=== PATIENT | male | born 1955 | race Caucasian/White ===

== ENCOUNTER 2017-11-14 14:18 | Emergency (ER) | payer OTHER, MEDICARE ==
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
[2017-11-14] MEDS ORDERED: OXYCODONE-ACETAMINOPHEN 5-325 MG TABLET PO ONE (16:03)
--- NOTE | 2017-11-14 16:43 | RADIOLOGY REPORT (SQ) ---
EXAM DESCRIPTION: SHOULDER LEFT 2 OR MORE VIEWS COMPLETED DATE/TIME: 11/14/2017 4:17 pm REASON FOR STUDY: fall, pain COMPARISON: None. NUMBER OF VIEWS: Three views. TECHNIQUE: Internal rotation, external rotation, and Y view images acquired of the left shoulder. LIMITATIONS: None. FINDINGS: MINERALIZATION: Normal. BONES: No acute fracture or dislocation. No worrisome bone lesions. JOINTS: No dislocation. VISUALIZED LUNGS AND RIBS: No pneumothorax. No rib fracture. SOFT TISSUES: No radiopaque foreign body. OTHER: No other significant finding. IMPRESSION: NEGATIVE STUDY OF THE LEFT SHOULDER. NO RADIOGRAPHIC EVIDENCE OF ACUTE INJURY. TECHNICAL DOCUMENTATION: JOB ID: [id number] [employer]- All Rights Reserved Reading location - IP/workstation name: [email or web address]
[2017-11-14 18:39] VITALS: BP 181/83
== END 2017-11-14 18:42 | disposition home or self-care (01) ==
LOC: ER 14:18
DX: S49.92XA Unspecified injury of left shoulder and upper arm, initial encounter (principal); M25.512 Pain in left shoulder; E78.00 Pure hypercholesterolemia, unspecified; K21.9 Gastro-esophageal reflux disease without esophagitis; F32.9 Major depressive disorder, single episode, unspecified; W19.XXXA Unspecified fall, initial encounter; Y93.9 Activity, unspecified; Y92.9 Unspecified place or not applicable; Y99.9 Unspecified external cause status; Z65.5 Exposure to disaster, war and other hostilities
CPT/HCPCS: 99283

== ENCOUNTER 2018-05-10 10:18 | Inpatient (IN) | payer OTHER, MEDICARE ==
--- NOTE | 2018-05-10 11:12 | ER Document Report ---
ED General - General Chief Complaint: High Blood Pressure Stated Complaint: BLOOD PRESSURE ISSUES Time Seen by Provider: 05/10/18 10:53 Notes: Patient is here complaining of feeling anxious, and being awakened about 4 AM this morning with a rapid and pounding heartbeat. He also experienced a penile erection which prevented him from urinating, until it went away and he was able to urinate. He feels like his heart is racing, but does not feel any chest pains. Has never had this before. Also feeling some shortness of breath this morning. Has not had any recent illness. No fevers or chills. Patient also complains of right testicular pain. He has had a problem with this symptom of right testicular pain off and on for a couple of years. Has never been seen by a doctor for this problem. This time the difference is that it is maintained pain in the right testicle for this long. He says it feels twisted and his says it looks like he is floating in a higher position than normal. Pain has been intermittent, as mentioned, but has become constant since yesterday. Patient has no history of any heart disease. No thyroid disease. Has a history of hypertension and high cholesterol for which she is [facility], but [facility]. He had a right hip replaced about 4 or 5 years ago. describes a procedure that sounds like he had a cardiac cath prior to that right hip replacement to make sure he can get through the surgery. Also has depression. TRAVEL OUTSIDE OF THE [place] IN LAST 30 DAYS: No - Related Data Allergies/Adverse Reactions: bacitracin [From Neosporin] Allergy (Verified 05/10/18 10:19) bacitracin zinc [From Neosporin] Allergy (Verified 05/10/18 10:19) gramicidin D [From Neosporin] Allergy (Verified 05/10/18 10:19) latex [Latex] Allergy (Verified 05/10/18 10:19) neomycin sulfate [From Neosporin] Allergy (Verified 05/10/18 10:19) Penicillins Allergy (Verified 05/10/18 10:19) polymyxin B [From Neosporin] Allergy (Verified 05/10/18 10:19) polymyxin B sulfate [From Neosporin] Allergy (Verified 05/10/18 10:19) Past Medical History - Social History Smoking Status: Unknown if Ever Smoked Family History: Reviewed & Not Pertinent, Hyperlipidemia - Past Medical History Cardiac Medical History: Reports: Hx Hypercholesterolemia Denies: Hx Coronary Artery Disease GI Medical History: Reports: Hx Gastroesophageal Reflux Disease Psychiatric Medical History: Reports: Hx Depression Past Surgical History: Reports: Hx Cardiac Surgery - ANGIOPLASTY, Hx Orthopedic Surgery - Right hip replacement - Immunizations Hx Diphtheria, Pertussis, Tetanus Vaccination: Yes Review of Systems - Review of Systems Notes: REVIEW OF SYSTEMS: CONSTITUTIONAL : Denies fever. EENT: Denies eye, ear, nose or mouth or throat pain or other symptoms. CARDIOVASCULAR: See HPI. RESPIRATORY: Denies cough, chest congestion, but did have some shortness of breath this morning. GASTROINTESTINAL: Denies abdominal pain or nausea, vomiting, or diarrhea. GENITOURINARY: See HPI. Has some burning with urination. No blood seen. Had an erection this morning that would not go away for a while. MUSCULOSKELETAL: Denies back or neck pain. Denies joint pain or swelling. SKIN: Denies rash or skin lesions. NEUROLOGICAL: Denies LOC or altered mental status. Denies headache. Denies sensory loss or motor deficits. ALL OTHER SYSTEMS REVIEWED AND NEGATIVE. Physical Exam - Vital signs Vitals: Temp Resp BP Pulse Ox 98.2 F 18 138/78 H 97 05/10/18 10:27 05/10/18 10:27 05/10/18 10:27 05/10/18 10:27 Interpretation: Tachycardic - Irregular rate Notes: PHYSICAL EXAMINATION: GENERAL: Well-appearing, in no acute distress. Tachycardia. HEAD: Atraumatic, normocephalic. EYES: Pupils equal round and reactive to light, extraocular movements intact. ENT: oropharynx clear without exudates. Moist mucous membranes. NECK: Normal range of motion, supple. LUNGS: Breath sounds clear and equal bilaterally. HEART: Irregularly irregular rate and rhythm without murmurs. ABDOMEN: Soft, nontender. No guarding or rebound. No masses. BACK: No tenderness throughout entire back. EXTREMITIES: Normal range of motion without pain. NEUROLOGICAL: Normal speech, normal gait. Normal sensory, motor, and reflex exams. Awake, alert, and oriented x3. Cranial nerves normal. PSYCH: Normal mood, normal affect. Genitourinary: Right testicle is diffusely tender, perhaps more so of the epididymis cannot really say whether the patient has swelling of the testicle.. SKIN: Warm, dry, no rashes. Course - Re-evaluation Re-evalutation: 05/10/18 13:40 Patient was given 10 mg of Cardizem and a Cardizem drip at 10 mg/h. Also given a liter of saline. Patient's heart rate fairly quickly decreased into the 90s, but remained in atrial fibrillation. Blood pressure was maintained. Land to contact hospitalist for admission. - Vital Signs Vital signs: Temp Pulse Resp BP Pulse Ox 98.1 F 74 17 131/83 H 94 05/10/18 17:16 05/10/18 19:00 05/10/18 17:16 05/10/18 17:16 05/10/18 17:16 - Laboratory Result Diagrams: 05/10/18 10:50 05/10/18 10:50 Laboratory results interpreted by me: 05/10/18 05/10/18 10:50 10:50 RBC 5.56 H Glucose 125 H - Diagnostic Test Radiology reviewed: Image reviewed, Reports reviewed - Ultrasound of the right testicle is normal. No explanation for the patient's pain. Critical Care Note - Critical Care Note Total time excluding time spent on procedures (mins): 40 Discharge - Discharge Clinical Impression: Atrial fibrillation with RVR, Right testicular pain Condition: Stable Disposition: ADMITTED INPATIENT Admitting Provider: Hospitalist Unit Admitted: Telemetry
[2018-05-10] MEDS ORDERED: ASPIRIN 81 MG TABLET, CHEWABLE PO ONE (11:15)
[2018-05-10] MEDS ORDERED: DILTIAZEM HCL INJ 25 MG/5 ML VIAL IV ONE (11:17)
[2018-05-10] MEDS ORDERED: DILTIAZEM HCL/D5W 125 MG/125 ML RTUINJ IV PRN (11:18)
[2018-05-10] MEDS ORDERED: NORMAL SALINE 1000 ML 1,000 ML IV ONE (11:21)
[2018-05-10 11:44] LABS: PROTHROMBIN TIME 12.6 SEC (11.4-15.4)
[2018-05-10 11:48] LABS: ABSOLUTE EOSINOPHILS # (AUTO) 0.2 10^3/uL (0.0-0.6); ABSOLUTE LYMPHOCYTES (AUTO) 3.6 10^3/uL (0.5-4.7); ABSOLUTE MONOCYTES (AUTO) 0.5 10^3/uL (0.1-1.4); ABSOLUTE NEUT (AUTO) 4.3 10^3/uL (1.7-8.2); BASOPHILS % (AUTO) 0.4 % (0-2); EOSINOPHILS % (AUTO) 2.2 % (0-6); HEMATOCRIT 48.4 % (37.9-51.0); LYMPHOCYTES % (AUTO) 41.5 % (13-45); MEAN CORPUSCULAR HEMOGLOBIN 30.6 pg (27.0-33.4); MEAN CORPUSCULAR HGB CONC 35.2 g/dL (32.0-36.0); MEAN CORPUSCULAR VOLUME 87 fl (80-97); PLATELET COUNT 314 10^3/uL (150-450); RED BLOOD COUNT 5.56 10^6/uL (4.35-5.55); SEGMENTED NEUTROPHILS % (AUTO) 49.9 % (42-78); TOTAL CELLS COUNTED % (AUTO) 100 %; WHITE BLOOD COUNT 8.6 10^3/uL (4.0-10.5)
[2018-05-10 11:50] LABS: ALANINE AMINOTRANSFERASE 39 U/L (21-72); ALBUMIN 4.8 g/dL (3.5-5.0); ALKALINE PHOSPHATASE 39 U/L (38-126); ANION GAP 8 (5-19); ASPARTATE AMINO TRANSFERASE 24 U/L (17-59); BILIRUBIN,DIRECT 0.2 mg/dL (0.0-0.4); BILIRUBIN,TOTAL 0.6 mg/dL (0.2-1.3); BLOOD UREA NITROGEN 17 mg/dL (7-20); CALCIUM 9.7 mg/dL (8.4-10.2); CARBON DIOXIDE 30 mmol/L (22-30); CHLORIDE 103 mmol/L (98-107); CREATINE KINASE 163 U/L (55-170); GLUCOSE 125 mg/dL (75-110); POTASSIUM 3.9 mmol/L (3.6-5.0); TOTAL PROTEIN 7.3 g/dL (6.3-8.2)
[2018-05-10 12:01] LABS: CREATINE KINASE MB 1.4 ng/mL (<4.55); TROPONIN I 0.029 ng/mL
--- NOTE | 2018-05-10 12:04 | RADIOLOGY REPORT (SQ) ---
EXAM DESCRIPTION: CHEST SINGLE VIEW COMPLETED DATE/TIME: 05/10/2018 11:50 am REASON FOR STUDY: Atrial fib RVR and short of breath COMPARISON: 02/15/2013 EXAM PARAMETERS: NUMBER OF VIEWS: One view. TECHNIQUE: Single frontal radiographic view of the chest acquired. RADIATION DOSE: NA LIMITATIONS: None. FINDINGS: LUNGS AND PLEURA: No opacities, masses or pneumothorax. No pleural effusion. MEDIASTINUM AND HILAR STRUCTURES: No masses. Contour normal. HEART AND VASCULAR STRUCTURES: Heart normal in size. Normal vasculature. BONES: No acute findings. HARDWARE: None in the chest. OTHER: No other significant finding. IMPRESSION: 1. No significant interval changes since the prior examination dated 02/15/2013. No ac kamala findings. TECHNICAL DOCUMENTATION: JOB ID: [id number] [employer]- All Rights Reserved Reading location - IP/workstation name: [email or web address]
--- NOTE | 2018-05-10 12:15 | EKG REPORT ---
SEVERITY:- ABNORMAL ECG - ATRIAL FIBRILLATION, V-RATE 81-167 RVR. : Confirmed by: Modesto Agarwal MD 10-May-2018 12:14:49
[2018-05-10 12:29] LABS: FREE T4 (FREE THYROXINE) 0.86 ng/dL (0.78-2.19)
[2018-05-10 12:45] LABS: THYROID STIMULATING HORMONE 2.87 uIU/mL (0.47-4.68)
[2018-05-10 12:46] LABS: APPEARANCE,URINE CLEAR; BILIRUBIN,URINE NEGATIVE (NEGATIVE); COLOR,URINE YELLOW; GLUCOSE, URINE NEGATIVE (NEGATIVE); KETONES,URINE NEGATIVE (NEGATIVE); LEUKOCYTE ESTERASE,URINE NEGATIVE (NEGATIVE); NITRITE,URINE NEGATIVE (NEGATIVE); PROTEIN,URINE NEGATIVE (NEGATIVE); URINE SPECIFIC GRAVITY 1.011; UROBILINOGEN,URINE NEGATIVE mg/dL (<2.0)
--- NOTE | 2018-05-10 13:07 | RADIOLOGY REPORT (SQ) ---
EXAM DESCRIPTION: U/S SCROTUM W/DOPPLER COMPLETED DATE/TIME: 05/10/2018 12:38 pm REASON FOR STUDY: Right testicular pain and swelling. COMPARISON: None. TECHNIQUE: Static and realtime okeefe scale imaging of the scrotum and testes. Selected color Doppler and spectral images recorded to document blood flow. LIMITATIONS: None. FINDINGS: RIGHT: TESTICLE: Normal size. Normal echotexture. Normal blood flow. No mass. EPIDIDYMIS: Normal. HYDROCELE OR VARICOCELE: No. HERNIA OR EXTRA-TESTICULAR MASS: No. OTHER: No other significant finding. LEFT: TESTICLE: Normal size. Normal echotexture. Normal blood flow. No mass. EPIDIDYMIS: Normal. HYDROCELE OR VARICOCELE: No. HERNIA OR EXTRA-TESTICULAR MASS: No. OTHER: No other significant finding. IMPRESSION: NORMAL SCROTAL ULTRASOUND. NO EVIDENCE OF TESTICULAR MASS OR TORSION. TECHNICAL DOCUMENTATION: JOB ID: [id number] [employer]- All Rights Reserved Reading location - IP/workstation name: [email or web address]
--- NOTE | 2018-05-10 14:09 | PDOC H&P ---
History of Present Illness Admission Date/PCP: [facility] CL[facility] History of Present Illness: SHANNON VAZQUEZ is a 63 year old male patient with past medical history of hypertension, hyperlipidemia and obesity presents with chief complaint of palpitation. Patient reports he was in his usual baseline state of up until 4 AM this morning when he started to have palpitation is not associated with chest pain. Patient denies any fever, chills or diaphoresis. No history of thyroid problems. Patient also complains of right testicular pain which has been going on for the last 2 years. His blood works are unremarkable and ultrasound of the scrotum is not revealing. His EKG revealed atrial fibrillation with RVR. Patient does not have history of atrial fibrillation in the past. Past Medical History Cardiac Medical History: Reports: Hyperlipidema, Hypertension Denies: Coronary Artery Disease GI Medical History: Reports: Gastroesophageal Reflux Disease Psychiatric Medical History: Reports: Depression Past Surgical History Past Surgical History: Reports: Orthopedic Surgery - Right hip replacement Social History Smoking Status: Never Smoker - Advance Directive Resuscitation Status: Full Code Family History Family History: Reviewed & Not Pertinent, Hyperlipidemia Parental Family History Reviewed: Yes Children Family History Reviewed: Yes Sibling(s) Family History Reviewed.: Yes Medication/Allergy Home Medications: Ciprofloxacin HCl [Cipro 500 mg Tablet] 500 mg PO BID 14 Days tablet 09/09/13 Ondansetron [Zofran Odt 4 mg Tablet] 1 - 2 tab PO Q4H PRN #15 tab.rapdis 09/09/13 Oxycodone HCl/Acetaminophen [Percocet 5-325 mg Tablet] 1 - 2 tab PO Q4H PRN #15 tablet 09/09/13 Unable To Recall 09/09/13 Allergies/Adverse Reactions: bacitracin [From Neosporin] Allergy (Verified 05/10/18 10:19) bacitracin zinc [From Neosporin] Allergy (Verified 05/10/18 10:19) gramicidin D [From Neosporin] Allergy (Verified 05/10/18 10:19) latex [Latex] Allergy (Verified 05/10/18 10:19) neomycin sulfate [From Neosporin] Allergy (Verified 05/10/18 10:19) Penicillins Allergy (Verified 05/10/18 10:19) polymyxin B [From Neosporin] Allergy (Verified 05/10/18 10:19) polymyxin B sulfate [From Neosporin] Allergy (Verified 05/10/18 10:19) Review of Systems Constitutional: ABSENT: chills, fever(s), headache(s), weight gain, weight loss Eyes: ABSENT: visual disturbances Ears: ABSENT: hearing changes Cardiovascular: PRESENT: palpitations Respiratory: ABSENT: cough, hemoptysis Gastrointestinal: ABSENT: abdominal pain, constipation, diarrhea, hematemesis, hematochezia, nausea, vomiting Genitourinary: ABSENT: dysuria, hematuria Musculoskeletal: ABSENT: joint swelling Integumentary: ABSENT: rash, wounds Neurological: ABSENT: abnormal gait, abnormal speech, confusion, dizziness, focal weakness, syncope Psychiatric: ABSENT: anxiety, depression, homidical ideation, suicidal ideation Endocrine: ABSENT: cold intolerance, heat intolerance, polydipsia, polyuria Hematologic/Lymphatic: ABSENT: easy bleeding, easy bruising Physical Exam Vital Signs: Temp Pulse Resp BP Pulse Ox 98.2 F 16 121/86 H 96 05/10/18 10:27 05/10/18 12:06 05/10/18 12:06 05/10/18 12:06 Intake & Output 05/09/18 05/10/18 05/11/18 06:59 06:59 06:59 Weight 98.5 kg General appearance: PRESENT: no acute distress, well-developed, well-nourished Head exam: PRESENT: atraumatic, normocephalic Eye exam: PRESENT: conjunctiva pink, EOMI, PERRLA. ABSENT: scleral icterus Ear exam: PRESENT: normal external ear exam Mouth exam: PRESENT: moist, tongue midline Neck exam: ABSENT: carotid bruit, JVD, lymphadenopathy, thyromegaly Respiratory exam: PRESENT: clear to auscultation claudette. ABSENT: rales, rhonchi, wheezes Cardiovascular exam: PRESENT: irregular rhythm Pulses: PRESENT: normal dorsalis pedis pul Vascular exam: PRESENT: normal capillary refill GI/Abdominal exam: PRESENT: normal bowel sounds, soft. ABSENT: distended, guarding, mass, organolmegaly, rebound, tenderness Rectal exam: PRESENT: deferred Extremities exam: PRESENT: full ROM. ABSENT: calf tenderness, clubbing, pedal edema Neurological exam: PRESENT: alert, awake, oriented to person, oriented to place, oriented to time, oriented to situation, CN II-XII grossly intact. ABSENT: motor sensory deficit Psychiatric exam: PRESENT: appropriate affect, normal mood. ABSENT: homicidal ideation, suicidal ideation Skin exam: PRESENT: dry, intact, warm. ABSENT: cyanosis, rash Results Laboratory Results: 05/10/18 10:50 05/10/18 10:50 05/10/18 05/10/18 05/10/18 10:50 10:50 10:50 WBC 8.6 RBC 5.56 H Hgb 17.0 Hct 48.4 MCV 87 MCH 30.6 MCHC 35.2 RDW 13.0 Plt Count 314 Seg Neutrophils % 49.9 Lymphocytes % 41.5 Monocytes % 6.0 Eosinophils % 2.2 Basophils % 0.4 Absolute Neutrophils 4.3 Absolute Lymphocytes 3.6 Absolute Monocytes 0.5 Absolute Eosinophils 0.2 Absolute Basophils 0.0 Sodium 141.0 Potassium 3.9 Chloride 103 Carbon Dioxide 30 Anion Gap 8 BUN 17 Creatinine 1.08 Est GFR ( Amer) > 60 Est GFR (Non-Af Amer) > 60 Glucose 125 H Calcium 9.7 Total Bilirubin 0.6 AST 24 ALT 39 Alkaline Phosphatase 39 Total Protein 7.3 Albumin 4.8 TSH 2.87 Free T4 0.86 Urine Color Urine Appearance Urine pH Ur Specific [place] Urine Protein Urine Glucose (UA) Urine Ketones Urine Blood Urine Nitrite Ur Leukocyte Esterase Urine WBC (Auto) 05/10/18 12:05 WBC RBC Hgb Hct MCV MCH MCHC RDW Plt Count Seg Neutrophils % Lymphocytes % Monocytes % Eosinophils % Basophils % Absolute Neutrophils Absolute Lymphocytes Absolute Monocytes Absolute Eosinophils Absolute Basophils Sodium Potassium Chloride Carbon Dioxide Anion Gap BUN Creatinine Est GFR ( Amer) Est GFR (Non-Af Amer) Glucose Calcium Total Bilirubin AST ALT Alkaline Phosphatase Total Protein Albumin TSH Free T4 Urine Color YELLOW Urine Appearance CLEAR Urine pH 7.0 Ur Specific [place] 1.011 Urine Protein NEGATIVE Urine Glucose (UA) NEGATIVE Urine Ketones NEGATIVE Urine Blood NEGATIVE Urine Nitrite NEGATIVE Ur Leukocyte Esterase NEGATIVE Urine WBC (Auto) 0 05/10/18 05/10/18 10:50 10:50 Creatine Kinase 163 CK-MB (CK-2) 1.40 Troponin I 0.029 Impressions: Chest X-Ray 05/10/18 11:15 IMPRESSION: 1. No significant interval changes since the prior examination dated 02/15/2013. No acute findings. Scrotum Ultrasound 05/10/18 11:28 IMPRESSION: NORMAL SCROTAL ULTRASOUND. NO EVIDENCE OF TESTICULAR MASS OR TORSION. Assessment & Plan - Diagnosis (1) Atrial fibrillation with RVR Is this a current diagnosis for this admission?: Yes Plan: Patient has been on Cardizem drip. We will transition him to p.o. Cardizem and I will consulted Dr. Carreno for his input (2) Right testicular pain Is this a current diagnosis for this admission?: Yes Plan: Chronic. No ultrasound finding. (3) Hypertension Qualifiers: Hypertension type: essential hypertension Qualified Code(s): I10 - Essential (primary) hypertension Is this a current diagnosis for this admission?: Yes Plan: Continue home medication (4) Hyperlipidemia Qualifiers: Hyperlipidemia type: unspecified Qualified Code(s): E78.5 - Hyperlipidemia, unspecified Is this a current diagnosis for this admission?: Yes Plan: Continue Lipitor (5) Obesity (BMI 35.0-39.9 without comorbidity) Is this a current diagnosis for this admission?: Yes Plan: Lifestyle modification advised
[2018-05-10] MEDS ORDERED: ONDANSETRON HCL INJ/PF 4 MG/2 ML SDV IV PRN (14:10)
[2018-05-10] MEDS ORDERED: IBUPROFEN 800 MG TABLET PO ONE (14:12)
[2018-05-10] MEDS ORDERED: DILTIAZEM HCL 240 MG CAPSULE.CR PO ONE (14:14)
[2018-05-10] MEDS: ENOXAPARIN SODIUM INJ 40 MG/0.4 ML DISP.SYRIN SUBCUT SCH (14:51)
[2018-05-10] MEDS: LANSOPRAZOLE 15 MG TAB.RAP.DR PO SCH (16:31)
[2018-05-10] MEDS ORDERED: IBUPROFEN 800 MG TABLET ONE (23:28)
[2018-05-10] MEDS ORDERED: IBUPROFEN 400 MG TABLET PO PRN (23:28)
[2018-05-11 05:36] LABS: ANION GAP 10 (5-19); BLOOD UREA NITROGEN 21 mg/dL (7-20); CALCIUM 9.1 mg/dL (8.4-10.2); CARBON DIOXIDE 25 mmol/L (22-30); CHLORIDE 103 mmol/L (98-107); CHOLESTEROL 155.74 mg/dL (0-200); GLUCOSE 101 mg/dL (75-110); POTASSIUM 3.7 mmol/L (3.6-5.0); SODIUM 137.9 mmol/L (137-145); TRIGLYCERIDES 312 mg/dL (<150)
[2018-05-11 05:47] LABS: DIRECT LDL 94 mg/dL (<100)
[2018-05-11 05:53] LABS: VLDL CHOLESTEROL 62.4 mg/dL (10-31)
[2018-05-11] MEDS: LANSOPRAZOLE 15 MG TAB.RAP.DR PO SCH (06:10)
--- NOTE | 2018-05-11 07:46 | EKG REPORT ---
SEVERITY:- BORDERLINE ECG - SINUS RHYTHM VENTRICULAR PREMATURE COMPLEX PROBABLE LEFT ATRIAL ABNORMALITY BORDERLINE T WAVE ABNORMALITIES : Confirmed by: Modesto Agarwal MD 11-May-2018 07:45:59
[2018-05-11] MEDS: ENOXAPARIN SODIUM INJ 40 MG/0.4 ML DISP.SYRIN SUBCUT SCH (09:29)
[2018-05-11] MEDS ORDERED: DILTIAZEM HCL 240 MG CAPSULE.CR PO SCH (10:00)
[2018-05-11 11:43] VITALS: BP 151/57
--- NOTE | 2018-05-11 12:12 | PDOC CONSULTATION ---
Consultation-Blank Consultation: CARDIOLOGY CONSULTATION by Dr. Shy Carreno on 05/11/2018. Patient seen at 8 AM. 60 minutes spent on this patient with more than 50% time spent in direct patient care. REASON FOR CONSULTATION: Patient with history of proximal atrial fibrillation. HISTORY PRESENT ILLNESS: Patient is a 63-year-old male with known history of hypertension hyperlipidemia, states that yesterday he woke up from his sleep feeling that something was wrong and was very anxious. He has episodic spells of anxiety. He also had an urgency to pass urine. He subsequently went to bed and again felt the same. At this time he took his blood pressure and found that his heart rate was 162, with the elevated blood pressure. At this time he also noticed that he had rapid palpitations. He denies any shortness of breath or chest pain or discomfort. There is no cough or fever chills or Reiger's. Came to the emergency room where he seem to be in atrial fibrillation with rapid ventricular response. He was given IV Cardizem and subsequently oral Cardizem and converted to sinus rhythm last evening. The patient has remained without any palpitations since then. Review of the monitor shows no ventricular arrhythmias or recurrence of any atrial arrhythmia. He remains in sinus rhythm. He has no TIA CVA symptoms. He denies any PND orthopnea or leg edema. He states that about 5 years ago he had a similar episode, and by the time he came to the emergency room he was found to be in a regular sinus rhythm and had a negative workup. Since then he has not had any palpitations except for the one yesterday that led to this admission. He also states he has right testicular pain which occurs episodically for the past 1-2 years. Workup in the emergency room was negative for any torsion or any acute pathology of the testicular apparatus. PAST MEDICAL HISTORY: He has a history of hypertension, and history of hyperlipidemia. There is no history of coronary artery disease, PA or anginal symptoms. There is no history of congestive heart failure. There is no history of prior palpitations as mentioned earlier except 5 years ago when he had a nonclinical episode of palpitation, the workup which was negative. He has no history of diabetes mellitus or thyroid disease. He has no history of chronic kidney disease. He has a history of GERD. He has a history of depression. There is no TIA CVA symptoms. There is no history of asthma or COPD, and no history of pulmonary embolism or sleep apnea. He does have episodic anxiety off and on. His depression he states is well controlled with medication. He also has a history of arthritis. PAST SURGICAL HISTORY: Right hip replacement. ALLERGIES: He is allergic to bacitracin ointment, gramicidin D, latex, Neosporin and neomycin, penicillin and Neosporin. FAMILY HISTORY: Is negative for coronary artery disease. There is a history of atrial fibrillation his brother. SOCIAL HISTORY: He quit smoking long time ago. There is no history of EtOH abuse. DISPOSITION: The patient is a full code. His is his surrogate healthcare decision maker REVIEW OF SYSTEMS: CONSTITUTIONAL: Denies fever chills or rigors. Generalized feeling of not feeling well, and also anxiety. No history of generalized fatigue or generalized weakness except when he had the palpitations. HEAD: No history of headaches or head injury. EYES: No history of amblyopia diplopia. No history of amaurosis fugax. EARS: No history of hearing loss. No history of tinnitus. No history of recurrent ear infections. NOSE: No history of hayfever. No history of nosebleeds prep. No history of nasal polyposis. MOUTH: No history of altered taste sensation. No ulcers in the mouth. No bleeding from the gums. THROAT: No history of odynophagia or dysphagia. No recurrent sore throats. Skin.: No history of pruritus. No history of yellowish discoloration of the skin. No eczema or psoriasis. NECK: No history of neck pain. No history of swelling in the neck. LUNGS: No history of asthma or COPD. No history of cough or sputum production. No history of wheezing. No history of sleep apnea. No history of pulmonary embolism. No history of pleuritic chest pain. No history of hemoptysis. No symptoms of upper or lower respiratory tract infections. CARDIAC/heart: History of hypertension present. No history of coronary artery disease or PA. This seems to be first clinical episode of documented atrial fibrillation. Is converted to sinus rhythm. Palpitations as mentioned earlier. No history of chest pain or discomfort. No history of PND orthopnea or shortness of breath or diaphoresis. No history of congestive heart failure. No history of rheumatic fever or congenital heart disease. No history of leg edema. No history of syncope. GI: History of GERD present. No history of fatty food intolerance. No history of peptic ulcer disease. No history of GI bleed. No history of ALTERED BOWEL MOVEMENTS. Musculoskeletal: Denies collagen vascular disease. He has history of arthritis and chronic low back pain, for which he takes ibuprofen off and on. RENAL and genitourinary: Denies chronic kidney disease. No symptoms of enlarged prostate. No history of hematuria pyuria or dysuria. Right testicular pain off and on since the past 2 years. METABOLIC: History of mild obesity present. No history of gout. History of hyperlipidemia present. ENDOCRINE: No history of diabetes mellitus or thyroid disease. No history of polydipsia polyuria no history of heat or cold intolerance. 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 No history of headaches migraines or seizures. PSYCHIATRIC: History of depression present well controlled on medication. Episodic spells of anxiety. No history of suicidal ideation.. No history of homicidal ideation. VASCULAR: No history of calf or buttock claudication. No history of DVT. HEMATOLOGICAL: No history of anemia. No history of bleeding diathesis. No history of clotting disorders. PHYSICAL EXAMINATION: The patient is mildly obese. At present in no acute distress he remains in sinus bradycardia by the monitor. He is well-groomed. Selected Entries 05/11/18 11:10 Temperature 97.6 F Temperature Oral Source Pulse Rate 56 L Respiratory 15 Rate Blood Pressure 137/66 H Blood Pressure 89 Mean BP Location Right Arm BP Position Supine O2 Sat by Pulse 96 Oximetry Oxygen Delivery Room Air Method HEAD: Is atraumatic normocephalic. EYES: Pupils are equal round regular reactive to light accommodation. Extraocular movements are normal. No conjunctival pallor. There is no scleral icterus. EARS: Tympanic membranes are intact. External auditory canals are clear. NOSE: There is no inflammation of the nasal mucous membrane. There is no deviated nasal septum. MOUTH: Mucous membranes of the mouth are moist. Tongue is moist. There is no ulcers. There is no bleeding from the gums. THROAT: There is no redness of the oropharynx. There is no exudates. SKIN: There is no petechia or ecchymosis. There is no skin lesions or skin rashes. NECK: Is supple. There is no JVD. Carotids are equal without any bruits. There is no lymphadenopathy. There is no goiter. There is no accessory muscle respiration use. Trachea central. LUNGS: Lungs are clear to auscultation percussion, without any rhonchi rales or wheezing. On palpation there is no chest wall tenderness. HEART: S1-S2 is heard. S1 is of normal intensity. There is no S3 gallop. There is no S4 gallop. There is systolic murmur in the left sternal border and the apex? Mitral regurgitation #severity. There is no rub. ABDOMEN: Is soft. Nontender. There is no hepatosplenomegaly. Bowel sounds are well heard. There is no tender areas masses. There is no rebound guarding or rigidity. EXTREMITIES: Femorals are well felt. There is no femoral bruits. Leg pulses are well felt. There is no pedal edema. There is no DVT or cellulitis. There is no calf tenderness. There is no cyanosis or clubbing. Capillary refill is normal. LIQUOR BRIDGE OPERATOR: The patient is conscious awake alert oriented x3 with no focal deficits. PSYCHIATRIC: The patient judgment and insight are intact his affect is normal. Current Medications Generic Name Dose Route Start Last Admin Trade Name Freq PRN Reason Stop Dose Admin Diltiazem HCl 240 mg 05/11/18 10:00 05/11/18 09:29 Cardizem Cd 240 Mg Capsule.Cr PO 06/10/18 09:59 240 mg DAILY BHUMI Administration Enoxaparin Sodium 40 mg 05/10/18 15:00 05/11/18 09:29 Lovenox Inj 40 Mg/0.4 Ml Disp.Syrin SUBCUT 06/09/18 14:59 40 mg DAILY BHUMI Administration Diltiazem HCl 125 mg in 125 mls @ 0 mls/hr 05/10/18 11:18 05/10/18 15:50 Cardizem Rtu Inj 125 Mg-D5w 125 Ml Premix IV 06/09/18 11:17 Infused CONTINUOUS PRN Titration THIS MED IS NOT "PRN" Protocol Titrate Ibuprofen 400 mg 05/10/18 23:28 05/10/18 23:48 Motrin 400 Mg Tablet PO 06/09/18 23:27 400 mg Q6HP PRN Administration PAIN Ondansetron HCl 4 mg 05/10/18 14:10 Zofran Inj/Pf 4 Mg/2 Ml Sdv IV 06/09/18 14:09 Q8HP PRN FOR NAUSEA/VOMITING Pantoprazole Sodium 20 mg 05/11/18 17:[address] Tablet PO 06/10/18 16:59 BID@0600,1700 [facility] Discontinued Medications Generic Name Dose Route Start Last Admin Trade Name Veronica PRN Reason Stop Dose Admin Aspirin 324 mg 05/10/18 11:15 05/10/18 11:41 Aspirin 81 Mg Chewable Tablet PO 05/10/18 11:16 324 mg NOW ONE Administration Diltiazem HCl 10 mg 05/10/18 11:17 05/10/18 11:39 Cardizem Inj 25 Mg/5 Ml Vial IV 05/10/18 11:18 10 mg NOW ONE Administration Diltiazem HCl 240 mg 05/10/18 14:14 05/10/18 14:51 Cardizem Cd 240 Mg Capsule.Cr PO 05/10/18 14:15 240 mg NOW ONE Administration Sodium Chloride 1,000 mls @ 0 mls/hr 05/10/18 11:21 05/10/18 12:50 Nacl 0.9% 1000 Ml Iv Soln IV 05/10/18 11:22 Infused BOLUS ONE Infusion Wide Open Ibuprofen 800 mg 05/10/18 14:12 05/10/18 14:43 Motrin 800 Mg Tablet PO 05/10/18 14:13 800 mg NOW ONE Administration Ibuprofen Confirm 05/10/18 23:28 05/10/18 23:49 Motrin 800 Mg Tablet Administered 05/10/18 23:29 Not Given Dose 800 mg .ROUTE .STK-MED ONE Lansoprazole 15 mg 05/10/18 17:00 05/11/18 06:10 Prevacid 15 Mg Odt Tablet PO 06/09/18 16:59 Not Given BID@0600,1700 [facility] HOME MEDICATIONS: Albuterol Sulfate [Proair HFA Inhalation Aerosol 8.5 gm MDI] 2 puff IH QIDP PRN 05/10/18 Atorvastatin Calcium [Lipitor 40 mg Tablet] 20 mg PO QHS 05/10/18 Bupropion HCl [Bupropion HCl Sr] 150 mg PO BID 05/10/18 Calcium Citrate/Vitamin D3 [Calcium Citrate - Vit D Tablet] 1 tab PO TID 05/10/18 Cetirizine HCl [Zyrtec 10 mg Tablet] 10 mg PO DAILY 05/10/18 Ibuprofen [Motrin 400 mg Tablet] 400 mg PO TID 05/10/18 Magnesium Oxide [Magnesium] 500 mg PO DAILY 05/10/18 [place]-3 Fatty Acids/Fish Oil [Fish Oil 1,000 mg Capsule] 1 cap PO DAILY 05/10/18 Pyridoxine HCl [Vitamin B-6 Tablet 50 mg] 50 mg PO DAILY 05/10/18 Sodium Fluoride [Prevident 5000 Plus] 1 applic PO BID 05/10/18 Zinc Sulfate [Zinc-220 Capsule] 220 mg PO DAILY 05/10/18 Labs- Entire Visit 05/10/18 05/10/18 05/10/18 10:50 10:50 10:50 WBC 8.6 RBC 5.56 H Hgb 17.0 Hct 48.4 MCV 87 MCH 30.6 MCHC 35.2 RDW 13.0 Plt Count 314 Seg Neutrophils % 49.9 Lymphocytes % 41.5 Monocytes % 6.0 Eosinophils % 2.2 Basophils % 0.4 Absolute Neutrophils 4.3 Absolute Lymphocytes 3.6 Absolute Monocytes 0.5 Absolute Eosinophils 0.2 Absolute Basophils 0.0 PT INR Sodium 141.0 Potassium 3.9 Chloride 103 Carbon Dioxide 30 Anion Gap 8 BUN 17 Creatinine 1.08 Est GFR ( Amer) > 60 Est GFR (Non-Af Amer) > 60 Glucose 125 H Hemoglobin A1c % Calcium 9.7 Total Bilirubin 0.6 Direct Bilirubin 0.2 Neonat Total Bilirubin Not Reportable Neonat Direct Bilirubin Not Reportable Neonat Indirect Bili Not Reportable AST 24 ALT 39 Alkaline Phosphatase 39 Creatine Kinase 163 CK-MB (CK-2) 1.40 Troponin I 0.029 Total Protein 7.3 Albumin 4.8 Triglycerides Cholesterol LDL Cholesterol Direct VLDL Cholesterol HDL Cholesterol TSH Free T4 Urine Color Urine Appearance Urine pH Ur Specific Beals Urine Protein Urine Glucose (UA) Urine Ketones Urine Blood Urine Nitrite Urine Bilirubin Urine Urobilinogen Ur Leukocyte Esterase Urine WBC (Auto) U Hyaline Cast (Auto) Squamous Epi Cells Auto Urine Mucus (Auto) Urine Ascorbic Acid 05/10/18 05/10/18 05/10/18 10:50 10:50 12:05 WBC RBC Hgb Hct MCV MCH MCHC RDW Plt Count Seg Neutrophils % Lymphocytes % Monocytes % Eosinophils % Basophils % Absolute Neutrophils Absolute Lymphocytes Absolute Monocytes Absolute Eosinophils Absolute Basophils PT 12.6 INR 0.90 Sodium Potassium Chloride Carbon Dioxide Anion Gap BUN Creatinine Est GFR ( Amer) Est GFR (Non-Af Amer) Glucose Hemoglobin A1c % Calcium Total Bilirubin Direct Bilirubin Neonat Total Bilirubin Neonat Direct Bilirubin Neonat Indirect Bili AST ALT Alkaline Phosphatase Creatine Kinase CK-MB (CK-2) Troponin I Total Protein Albumin Triglycerides Cholesterol LDL Cholesterol Direct VLDL Cholesterol HDL Cholesterol TSH 2.87 Free T4 0.86 Urine Color YELLOW Urine Appearance CLEAR Urine pH 7.0 Ur Specific Beals 1.011 Urine Protein NEGATIVE Urine Glucose (UA) NEGATIVE Urine Ketones NEGATIVE Urine Blood NEGATIVE Urine Nitrite NEGATIVE Urine Bilirubin NEGATIVE Urine Urobilinogen NEGATIVE Ur Leukocyte Esterase NEGATIVE Urine WBC (Auto) 0 U Hyaline Cast (Auto) 1 Squamous Epi Cells Auto <1 Urine Mucus (Auto) RARE Urine Ascorbic Acid NEGATIVE 05/10/18 05/11/18 05/11/18 16:46 03:36 03:36 WBC RBC Hgb Hct MCV MCH MCHC RDW Plt Count Seg Neutrophils % Lymphocytes % Monocytes % Eosinophils % Basophils % Absolute Neutrophils Absolute Lymphocytes Absolute Monocytes Absolute Eosinophils Absolute Basophils PT INR Sodium 137.9 Potassium 3.7 Chloride 103 Carbon Dioxide 25 Anion Gap 10 BUN 21 H Creatinine 1.09 Est GFR ( Amer) > 60 Est GFR (Non-Af Amer) > 60 Glucose 101 Hemoglobin A1c % 5.4 Calcium 9.1 Total Bilirubin Direct Bilirubin Neonat Total Bilirubin Neonat Direct Bilirubin Neonat Indirect Bili AST ALT Alkaline Phosphatase Creatine Kinase CK-MB (CK-2) Troponin I 0.028 Total Protein Albumin Triglycerides 312 H Cholesterol 155.74 LDL Cholesterol Direct 94 VLDL Cholesterol 62.4 H HDL Cholesterol 34 L TSH Free T4 Urine Color Urine Appearance Urine pH Ur Specific Beals Urine Protein Urine Glucose (UA) Urine Ketones Urine Blood Urine Nitrite Urine Bilirubin Urine Urobilinogen Ur Leukocyte Esterase Urine WBC (Auto) U Hyaline Cast (Auto) Squamous Epi Cells Auto Urine Mucus (Auto) Urine Ascorbic Acid Chest X-Ray 05/10/18 11:15 IMPRESSION: 1. No significant interval changes since the prior examination dated 02/15/2013. No acute findings. Scrotum Ultrasound 05/10/18 11:28 IMPRESSION: NORMAL SCROTAL ULTRASOUND. NO EVIDENCE OF TESTICULAR MASS OR TORSION. IMPRESSION/RECOMMENDATION: 1. Paroxysmal atrial fibrillation: At present patient sinus rhythm. In view of the patient's heart rate being on the lower side would recommend decrease the patient's Cardizem CD from 2 40 mg once a day to Cardizem CD 180 mg once a day. Aspirin 325 mg p.o. daily.: [See discussion below]. 2.Hypertension: Blood pressure well controlled. 3.Hyperlipidemia: Continue Statin. 4. Right Testicular Pain: Antibiotics being started. 5.Systolic murmur? Mitral regurgitation. 6.Corrected JASBIR VASC-2 SCORE: The patient's corrected Jasbir vas 2 score is 1. Hence is at moderate risk for CVA. Discussed the option of anticoagulation with the newer anticoagulant agents orally, Coumadin and aspirin. The patient takes ibuprofen for arthritis off and on., And hence will be at a slightly higher risk for bleeding complications with the newer oral anticoagulant agents. This was discussed at length with the patient. Patient prefers to be on aspirin. Will get a 30-day event monitor as an outpatient, and also an echocardiogram as an outpatient to assess the murmur and also have an IV Lexiscan Cardiolite stress test to make sure that there is no underlying coronary artery disease. The patient's CAD risk factors are age, hypertension, and hyperlipidemia. Medications reviewed. Medication dosing discussed with the hospitalist. Management plans discussed with the hospitalist and with the patient. 60 minutes spent on this patient, with more than 50% of time spent in direct patient care. The patient desires to follow-up with me in the office. Contact numbers given. Cardiac status is stable. Hence would recommend discharging the patient home on current medications including aspirin 325 mg p.o. daily, and Cardizem CD at 180 mg p.o. daily.
--- NOTE | 2018-05-11 16:28 | PDOC DISCHARGE SUMMARY ---
General - Admit/Disc Date/PCP Admission Date/Primary Care Provider: 05/10/18 15:[facility] Discharge Date: 05/11/18 - Discharge Diagnosis (1) Atrial fibrillation with RVR Is this a current diagnosis for this admission?: Yes Summary: Patient was admitted with atrial fibrillation with RVR; no previous history of same. Laboratory evaluation including cardiac enzymes and thyroid panel were unremarkable. He is admitted to the medical floor and continuous cardiac telemetry and initi ally placed on a diltiazem drip. He converted to normal sinus rhythm and was subsequently transitioned to p.o. diltiazem. Cardiology was consulted; have approved patient for discharge to home today on Cardizem CD 180 mg daily and full dose aspirin therapy. Patient is to follow-up in Dr. Serna's office for 30-day event monitor, echocardiogram, and stress testing. He is also advised to follow-up with his primary care provider within 1 week. He is instructed to return to the emergency department as needed for concerning symptoms. (2) Hyperlipidemia Is this a current diagnosis for this admission?: Yes Summary: Continue home dose atorvastatin and omega-3 oils. (3) Hypertension Is this a current diagnosis for this admission?: Yes Summary: Home dose amlodipine has been discontinued. He has been placed on diltiazem CD 180 mg daily. Recommend low-sodium diet. Follow-up with primary care provider and with Dr. Carreno within 1 week; likely will require further antihypertensive medications. (4) Obesity (BMI 35.0-39.9 without comorbidity) Is this a current diagnosis for this admission?: Yes Summary: Dietary discretion/lifestyle modification advised. (5) Right testicular pain Is this a current diagnosis for this admission?: Yes Summary: Chronic per patient. Testicular ultrasound is benign. Urinalysis is negative. Patient is afebrile with normal WBC. No indications for antibiotics at this time. Recommend outpatient urology follow-up. - Additional Information Resuscitation Status: Full Code Discharge Diet: Cardiac Discharge Activity: Activity As Tolerated, Balance Activity w/Rest Prescriptions: Aspirin [Aspirin 325 mg Tablet] 325 mg PO DAILY PRN #90 tab PRN Reason: Diltiazem HCl [Diltiazem 24Hr Cd] 180 mg PO DAILY #30 cap.er.24h Home Medications: Albuterol Sulfate [Proair HFA Inhalation Aerosol 8.5 gm MDI] 2 puff IH QIDP PRN 05/10/18 Atorvastatin Calcium [Lipitor 40 mg Tablet] 20 mg PO QHS 05/10/18 Bupropion HCl [Bupropion HCl Sr] 150 mg PO BID 05/10/18 Calcium Citrate/Vitamin D3 [Calcium Citrate - Vit D Tablet] 1 tab PO TID 05/10/18 Cetirizine HCl [Zyrtec 10 mg Tablet] 10 mg PO DAILY 05/10/18 Ibuprofen [Motrin 400 mg Tablet] 400 mg PO TID 05/10/18 Magnesium Oxide [Magnesium] 500 mg PO DAILY 05/10/18 [place]-3 Fatty Acids/Fish Oil [Fish Oil 1,000 mg Capsule] 1 cap PO DAILY 05/10/18 Pyridoxine HCl [Vitamin B-6 Tablet 50 mg] 50 mg PO DAILY 05/10/18 Sodium Fluoride [Prevident 5000 Plus] 1 applic PO BID 05/10/18 Zinc Sulfate [Zinc-220 Capsule] 220 mg PO DAILY 05/10/18 Aspirin [Aspirin 325 mg Tablet] 325 mg PO DAILY PRN #90 tab 05/11/18 Diltiazem HCl [Diltiazem 24Hr Cd] 180 mg PO DAILY #30 cap.er.24h 05/11/18 Ibuprofen [Motrin 400 mg Tablet] 400 mg PO Q6HP PRN tablet 05/11/18 History of Present Illness History of Present Illness: Per H&P by Dr. Baer: SHANNON VAZQUEZ is a 63 year old male patient with past medical history of hypertension, hyperlipidemia and obesity presents with chief complaint of palpitation. Patient reports he was in his usual baseline state of up until 4 AM this morning when he started to have palpitation is not associated with chest pain. Patient denies any fever, chills or diaphoresis. No history of thyroid problems. Patient also complains of right testicular pain which has been going on for the last 2 years. His blood works are unremarkable and ultrasound of the scrotum is not revealing. His EKG revealed atrial fibrillation with RVR. Patient does not have history of atrial fibrillation in the past. Physical Exam Vital Signs: Temp Pulse Resp BP Pulse Ox 97.6 F 56 L 15 151/57 H 96 05/11/18 11:41 05/11/18 11:41 05/11/18 11:41 05/11/18 11:41 05/11/18 11:41 Intake & Output 05/10/18 05/11/18 05/12/18 06:59 06:59 06:59 Intake Total 1039 Output Total 600 Balance 439 Weight 102.6 kg General appearance: PRESENT: no acute distress, cooperative - [place] pleasant, obese, well-developed, well-nourished Head exam: PRESENT: atraumatic, normocephalic Eye exam: PRESENT: conjunctiva pink, EOMI, PERRLA. ABSENT: scleral icterus Mouth exam: PRESENT: moist, tongue midline Neck exam: ABSENT: carotid bruit, JVD, lymphadenopathy, thyromegaly Respiratory exam: PRESENT: clear to auscultation claudette, symmetrical, unlabored. ABSENT: rales, rhonchi, wheezes Cardiovascular exam: PRESENT: RRR, +S1, +S2, systolic murmur. ABSENT: diastolic murmur, rubs Pulses: PRESENT: normal dorsalis pedis pul Vascular exam: PRESENT: normal capillary refill GI/Abdominal exam: PRESENT: normal bowel sounds, soft. ABSENT: distended, guarding, mass, organolmegaly, rebound, tenderness Rectal exam: PRESENT: deferred Extremities exam: PRESENT: full ROM. ABSENT: calf tenderness, clubbing, pedal edema Neurological exam: PRESENT: alert, awake, oriented to person, oriented to place, oriented to time, oriented to situation, CN II-XII grossly intact. ABSENT: motor sensory deficit Psychiatric exam: PRESENT: appropriate affect, normal mood. ABSENT: homicidal ideation, suicidal ideation Skin exam: PRESENT: dry, intact, warm. ABSENT: cyanosis, rash Results Laboratory Results: 05/10/18 10:50 05/11/18 03:36 05/11/18 03:36 Sodium 137.9 Potassium 3.7 Chloride 103 Carbon Dioxide 25 Anion Gap 10 BUN 21 H Creatinine 1.09 Est GFR ( Amer) > 60 Est GFR (Non-Af Amer) > 60 Glucose 101 Calcium 9.1 Triglycerides 312 H Cholesterol 155.74 LDL Cholesterol Direct 94 VLDL Cholesterol 62.4 H HDL Cholesterol 34 L 05/10/18 05/10/18 05/10/18 10:50 10:50 16:46 Creatine Kinase 163 CK-MB (CK-2) 1.40 Troponin I 0.029 0.028 Impressions: Chest X-Ray 05/10/18 11:15 IMPRESSION: 1. No significant interval changes since the prior examination dated 02/15/2013. No acute findings. Scrotum Ultrasound 05/10/18 11:28 IMPRESSION: NORMAL SCROTAL ULTRASOUND. NO EVIDENCE OF TESTICULAR MASS OR TORSION. Qualifiers - * PATIENT BEING DISCHARGED WITH ANY OF THE FOLLOWING DIAGNOSIS: No Plan Discharge Plan: Discharged home with self-care. Follow-up with Dr. Serna's office within 1 week to schedule 30-day event monitor, echocardiogram, and stress testing. Follow-up with primary care provider within 1 week. Recommend outpatient urology follow-up to evaluate chronic testicular pain. Return to the emergency department as needed for concerning symptoms. Time Spent: Less than 30 Minutes
[2018-05-11] MEDS ORDERED: PANTOPRAZOLE SODIUM 20 MG TABLET.DR PO SCH (17:00)
== END 2018-05-11 13:07 | disposition home or self-care (01) | DRG 310 ==
LOC: ER 10:18 → EH 15:20 → 5 18:02
PROVIDERS: ADMIT Internal Medicine; ATTEND Internal Medicine
DX: I48.91 Unspecified atrial fibrillation (principal); I10 Essential (primary) hypertension; E78.00 Pure hypercholesterolemia, unspecified; N50.811 Right testicular pain; K21.9 Gastro-esophageal reflux disease without esophagitis; E66.9 Obesity, unspecified; F32.9 Major depressive disorder, single episode, unspecified; Z96.641 Presence of right artificial hip joint
CPT/HCPCS: 36415; 71045; 76870; 80048; 80053; 80061; 81001; 82550; 82553; 83036; 84439; 84443; 84484; 85025; 85610; 93005; 93010; 93976; 96365; 96366; 96372; 99291; J1650; J3490; J7030

== ENCOUNTER 2018-11-08 06:44 | Day surgery (SDC) | payer OTHER, MEDICARE ==
[2018-11-01 10:23] LABS: ABSOLUTE EOSINOPHILS # (AUTO) 0.2 10^3/uL (0.0-0.6); ABSOLUTE LYMPHOCYTES (AUTO) 3.7 10^3/uL (0.5-4.7); ABSOLUTE MONOCYTES (AUTO) 0.5 10^3/uL (0.1-1.4); ABSOLUTE NEUT (AUTO) 5.7 10^3/uL (1.7-8.2); BASOPHILS % (AUTO) 0.4 % (0-2); EOSINOPHILS % (AUTO) 1.9 % (0-6); HEMATOCRIT 44.6 % (37.9-51.0); HEMOGLOBIN 15.3 g/dL (13.5-17.0); LYMPHOCYTES % (AUTO) 36.8 % (13-45); MEAN CORPUSCULAR HEMOGLOBIN 29.7 pg (27.0-33.4); MEAN CORPUSCULAR HGB CONC 34.3 g/dL (32.0-36.0); MEAN CORPUSCULAR VOLUME 87 fl (80-97); MONOCYTES % (AUTO) 4.8 % (3-13); PLATELET COUNT 288 10^3/uL (150-450); RED BLOOD COUNT 5.14 10^6/uL (4.35-5.55); SEGMENTED NEUTROPHILS % (AUTO) 56.1 % (42-78); TOTAL CELLS COUNTED % (AUTO) 100 %; WHITE BLOOD COUNT 10.1 10^3/uL (4.0-10.5)
[2018-11-01 10:41] LABS: ANION GAP 9 (5-19); BLOOD UREA NITROGEN 21 mg/dL (7-20); CALCIUM 10.1 mg/dL (8.4-10.2); CARBON DIOXIDE 32 mmol/L (22-30); CHLORIDE 102 mmol/L (98-107); GLUCOSE 118 mg/dL (75-110); POTASSIUM 4.5 mmol/L (3.6-5.0)
[~2018-11-08 06:44] MED LIST: CEFAZOLIN SODIUM 2 GM in DEXTROSE 5%-WATER 100 ML IV PRN; LACTATED RINGERS 1000 ML IV PRN; LIDOCAINE 0.5% INJ-PF (5 MG/ML) 50 ML SDV SUBCUT PRN
[2018-11-08] MEDS ORDERED: LIDOCAINE 2% INJ (20 MG/ML) 20 ML MDV ONE ×2 (07:05→09:57)
[2018-11-08] MEDS ORDERED: EPINEPHRINE INJ/PF 1 MG/1 ML AMPULE ONE (07:06)
[2018-11-08] MEDS ORDERED: BUPIVACAINE HCL 0.5 % INJ/PF 30 ML SDV ONE (07:06)
[2018-11-08] MEDS ORDERED: MIDAZOLAM 2 MG/2 ML INJ ONE (07:07)
[2018-11-08] MEDS ORDERED: FENTANYL CITRATE INJ/PF 100 MCG/2 ML AMPUL ONE (07:07)
[2018-11-08] MEDS ORDERED: EPHEDRINE SULFATE INJ 50 MG/1 ML AMPULE ONE ×2 (07:07→12:58)
[2018-11-08] MEDS ORDERED: HYDROMORPHONE HCL INJ/PF 2 MG/ML AMPULE ONE (07:07)
[2018-11-08] MEDS ORDERED: PROMETHAZINE HCL INJ 25 MG/1 ML VIAL ONE (07:07)
[2018-11-08] MEDS ORDERED: PROPOFOL INJ 200 MG/20 ML VIAL IV ONE (07:08)
--- NOTE | 2018-11-08 08:17 | EKG REPORT ---
SEVERITY:- OTHERWISE NORMAL ECG - SINUS RHYTHM ATRIAL PREMATURE COMPLEX : Confirmed by: Shy Carreno MD 08-Nov-2018 08:16:23
[2018-11-08] MEDS ORDERED: MORPHINE SULFATE 10 MG/ML INJ IV PRN ×2 (08:19→11:11)
[2018-11-08] MEDS ORDERED: ONDANSETRON HCL INJ/PF 4 MG/2 ML SDV IV PRN ×2 (08:19→11:11)
[2018-11-08] MEDS ORDERED: OXYCODONE-ACETAMINOPHEN 5-325 MG TABLET PO PRN ×3 (08:19→11:11)
[2018-11-08] MEDS ORDERED: FENTANYL CITRATE INJ/PF 100 MCG/2 ML AMPUL IV PRN ×3 (08:19)
[2018-11-08] MEDS ORDERED: DIPHENHYDRAMINE HCL 50 MG/ML VIAL IV PRN (08:19)
[2018-11-08] MEDS ORDERED: MEPERIDINE HCL/PF INJ 25 MG/1 ML DISP.SYRIN IV PRN (08:19)
[2018-11-08] MEDS ORDERED: LIDOCAINE 2%/EPINEPHRINE INJ 20 ML VIAL ONE (09:57)
[2018-11-08] MEDS ORDERED: ROPIVACAINE HCL 0.5% INJ/PF (5 MG/1 ML) 30 ML SDV ONE (09:58)
--- NOTE | 2018-11-08 11:13 | Discharge Summary ---
Discharge Summary (SDC) - Discharge Final Diagnosis: Left shoulder rotator cuff tear Date of Surgery: 11/08/18 Discharge Date: 11/08/18 Condition: Good Forms: ASU Anesthesia D/C Instruction, Discharge POC-Surgical Service Treatment or Instructions: Schedule Follow Up w/ Dr. Roderick Feldman @ [facility] for Surgery to be seen in 10-14 days or as scheduled [place]: [place]: [place]: May remove dressing on postop day #3, keep incision covered and dry. Cryocuff to shoulder May begin pendulum exercises along w/ hand, wrist and elbow range of motion 4x per day or as tolerated. May remove sling for hygiene purposes otherwise continue it at all times. Stool softener of choice when on pain medication. USE OF [id number] IBUPROFEN: Ibuprofen (Advil, Nuprin, Medipren, Motrin IB) is a medication for fever and pain control. In addition, it has anti- inflammatory effects which may be beneficial, especially in the treatment of injuries. It's best to take ibuprofen with food. Persons with ulcer disease or allergy to aspirin should notify their physician of this before taking ibuprofen. Ibuprofen can be given every four to six hours, for a total of four doses daily. Age Pain or fever dose Antiinflammatory dose 6-8 yr 200 mg (1 tab) 200 mg (1 tab) 9-11 yr 200 mg (1 tab) 200-400 mg (1-2 tab) 11-14 yr 200-400 mg (1-2 tab) 400 mg (2 tab) 15-adult 400 mg (2 tab) 600 mg (3 tab) ORAL NARCOTIC MEDICATION: You have been given a prescription for pain control. This medication is a narcotic. It's best taken with food, as nausea can result if taken on an empty stomach. Don't operate machinery or drive within six hours of taking this medication. Do not combine this medicine with alcohol, or with any medication which can cause sedation (such as cold tablets or sleeping pills) unless you get permission from the physician. Narcotics tend to cause constipation. If possible, drink plenty of fluids and eat a diet high in fiber and fruits. Please be aware that prescription narcotics also have the potential for abuse. People become addicted to these medications because of the general sense of wellbeing that they induce. This feeling along with a significant reduction in tension, anxiety, and aggression provides a stimulating seductive quality to these drugs. Once your pain is under control, we encourage you to discard your unused narcotics. Prescriptions: Ketorolac Tromethamine [Toradol 10 mg Tablet] 10 mg PO Q8HP PRN #12 tablet PRN Reason: Oxycodone HCl/Acetaminophen [Percocet 5-325 mg Tablet] 1 tab PO Q6 PRN #25 tab PRN Reason: Referrals: RODERICK FELDMAN DO [ACTIVE STAFF] - Discharge Diet: As Tolerated Respiratory Treatments at Home: Deep Breathing/Coughing, Incentive Spirometer Discharge Activity: No Lifting Over 10 Pounds, No Lifting/Push/Pulling Report the Following to Your Physician Immediately: Fever over 101 Degrees, Unusual Bleeding, Redness, Swelling, Warmth, Increased Soreness
--- NOTE | 2018-11-08 11:35 | Operative Report ---
Operative Report DATE OF SURGERY: 11/08/18 PREOPERATIVE DIAGNOSIS: Left shoulder rotator cuff tear, degenerative SLAP tear, impingement syndrome POSTOPERATIVE DIAGNOSIS: Same plus irreparable rotator cuff OPERATION: Left shoulder arthroscopy with subacromial decompression, acromioplasty, rotator cuff tear/superior capsule reconstruction utilizing dermal allograft, open biceps tenodesis SURGEON: JOSEE FELDMAN ANESTHESIA: GA COMPLICATIONS: None ESTIMATED BLOOD LOSS: 10 cc PROCEDURE: Indication for above procedure: 63-year-old male with significant rotator cuff tear confirmed on MRI. Attempted conservative measures without resolution of patient's symptoms at that point decision was made to proceed with operative intervention. Risk and benefits were explained patient verbalized understanding consented for surgical procedure. Procedure In Detail: Patient was seen and evaluated in the preoperative holding area. The LEFT upper extremity was initialized and marked. Patient received 2g of Ancef IV for bacterial prophylaxis. Patient was taken back to the operative room where transferred to the operative table and placed under general anesthesia. Once they were adequately anesthetized patient placed in the beachchair position. Cervical spine was placed in neutral position all bony prominences were padded including nonoperative upper extremity and bilateral lower extremity. A surgical team debriefing was performed ensuring all instrumentation was available, the surgical procedure was discussed with possible concerns reviewed. The upper extremity was prepped with ChloraPrep draped in a sterile fashion. A timeout was done identifying correct patient, procedure and extremity everyone in attendance agree with this and verbalized no concerns. Posterior portal was established arthroscope introduced into the glenohumeral joint. Via translation anterior portal was established. Diagnostic arthroscopy demonstrated degenerative SLAP tear with significant synovitis along the glenohumeral joint no significant degenerative changes of the glenohumeral joint. Partial synovectomy was performed. Biceps tenotomy was performed to allow for later tenodesis. Subscapularis remained intact without abnormality. Inspection of the rotator cuff demonstrated full-thickness rotator cuff tear with retraction to the glenoid with partially intact infraspinatus. Arthroscope was introduced into the subacromial space via triangulation lateral portal was established, subacromial bursectomy was performed. Coracoacromial ligament was released but not excised an anterior acromial spur debrided via an acromioplasty. Inspection of the rotator cuff once again confirmed diagnosis with significant retraction and scarring to the glenoid and thus not repairable with primary means thus decision was made to proceed with superior capsular reconstruction. Greater tuberosity was debrided down to normal cancellus bone. Medial insertion of the dermal allograft along the glenoid was measured the anterior and posterior margins were also measured. Via triangulation portal was established to place swivel lock anchors x2 into the medial row at the tuberosity and this was also measured. The dermal allograft was then measured and on the back table graft was prepared. FiberWire horizontal mattress sutures were placed through the medial side and 2 holes placed to the lateral side. The graft was then inserted into the lateral portal and the fiber tape sutures loaded into the graft. The medial sutures were shuttled through the anterior and previous established Neviser's portal. Under direct visualization drill holes were placed anterior and posterior within the glenoid to place push lock anchors. The sutures were shuttled into the push lock anchors and the graft secured to the glenoid surface. Through the lateral portal 1 anterior and one posterior fiber tape was placed into a swivel lock anchor and secured to the lateral row obtaining double row fixation. Similarly one anterior one posterior fiber tape was placed into an additional swivel lock anchor completing lateral fixation. At completion there is excellent stability of the graft without evidence of superior migration. With the remaining fiber wire suture into the lateral portal the lateral edge of the graft and infraspinatus was secured with [id number] sutures. 3 additional [id number] sutures were placed between the graft and the infraspinatus. Finally one anterior and one posterior fiber wire from the medial anchors were secured in horizontal mattress fashion over the remanent rotator cuff. All sutures were then cut and portals removed. At the completion of the case portal incisions would be closed with interrupted 3-0 nylon suture. Longitudinal skin incision was made along the inferior third of the pectoralis major. Blunt dissection was performed identifying the inferior border of the pectoralis major. Any peripheral vasculature was carefully coagulated. I then identified the tenotomized long head of the biceps which was retrieved and brought out the wound. The tendon was then secured 2 centimeters distal to the musculotendinous junction with a #2 fiber loop and the remaining diseased portion of the biceps was excised. The Arthrex biceps tenodesis button was then secured to my biceps tendon. Under direct visualization I then cleared an area along the anterior aspect of the humerus and drilled unicortically. The button was then placed into the unicortical hole and the biceps tendon was shuttled to the anterior cortex of the humerus. I then checked stability of the button confirming maximal fixation. Utilizing the free needle one limb of the remaining FiberWire was secured to the biceps providing further fixation. The elbow was then placed through range of motion to ensure appropriate tension of the biceps with flexion and extension. The wound was then copiously irrigated with normal saline. Any peripheral vasculature was carefully coagulated with Bovie cautery. Skin was closed a running subcuticular 3-0 Monocryl suture reinforced with Dermabond and Steri-Strips. Patient was placed in a abduction sling. Sponge counts, instrument counts, needle counts were correct. Patient was then awoken from anesthesia. Transferred from the operating room table to the operating room stretcher. Th ere was no intraoperative complications patient tolerated procedure well stable to PACU. Postop plan: Patient follow-up the office in 2 weeks at which point we will proceed with suture removal. Patient will be set up for physical therapy 4 weeks postoperatively.
[2018-11-08] MEDS ORDERED: ROCURONIUM BROMIDE INJ 50 MG/5 ML VIAL IV ONE (12:15)
[2018-11-08] MEDS ORDERED: SUCCINYLCHOLINE CHLORIDE INJ 200 MG/10 ML VIAL ONE (12:15)
[2018-11-08] MEDS ORDERED: ONDANSETRON HCL INJ/PF 4 MG/2 ML SDV ONE ×2 (12:15→13:57)
[2018-11-08] MEDS ORDERED: KETOROLAC TROMETHAMINE 60 MG/2 ML SDV ONE (12:15)
[2018-11-08] MEDS ORDERED: PHENYLEPHRINE HCL INJ/PF 10 MG/1 ML SDV ONE (12:15)
[2018-11-08 18:44] VITALS: BP 152/79
== END 2018-11-08 18:05 | disposition home or self-care (01) ==
LOC: OROUT 06:44
PROVIDERS: ATTEND Orthopaedic Surgery
DX: M75.122 Complete rotator cuff tear or rupture of left shoulder, not specified as traumatic (principal); S43.432A Superior glenoid labrum lesion of left shoulder, initial encounter; X58.XXXA Exposure to other specified factors, initial encounter; M75.42 Impingement syndrome of left shoulder; M25.512 Pain in left shoulder; I10 Essential (primary) hypertension; I48.91 Unspecified atrial fibrillation; E78.00 Pure hypercholesterolemia, unspecified; E66.3 Overweight; Z79.82 Long term (current) use of aspirin; Z79.899 Other long term (current) drug therapy; Z87.891 Personal history of nicotine dependence; Z68.33 Body mass index [BMI] 33.0-33.9, adult
CPT/HCPCS: 36415; 85025; 80048; 93005; 93010; 29826; 29827; 29999; 23430; C1713 ×4; Q4125; J2795; J2250; J3490 ×4; J0690; J0171; J1885; J1170; J2370; J0330; J2405; J7060; J2704; J2550; J3010

== ENCOUNTER 2019-01-11 15:15 | Emergency (ER) | payer OTHER, MEDICARE ==
[2019-01-11] MEDS ORDERED: ONDANSETRON 4 MG TAB.RAPDIS PO ONE (15:28)
--- NOTE | 2019-01-11 15:29 | ER Document Report ---
ED Medical Screen (RME) - General Chief Complaint: Nausea/Vomiting/Diarrhea Stated Complaint: NAUSEA Time Seen by Provider: 01/11/19 15:25 Primary Care Provider: MARY DUARTE PA [Primary Care Provider] - Follow up as needed Mode of Arrival: Ambulatory Information source: Patient Notes: This 63-year-old male with history of blood pressure presents emergency depart ment with abdominal pain nausea vomiting and some diarrhea since this morning. Reports he ate some office yesterday. His abdomen started hurting last night. He started having vomiting this morning with very little diarrhea. Abdomen is tight. Tender to palpate. I have greeted and performed a rapid initial assessment of this patient. A comprehensive ED assessment and evaluation of the patient, analysis of test results and completion of the medical decision making process will be conducted by additional ED providers. Dictation of this chart was performed using voice recognition software; therefore, there may be some unintended grammatical errors. TRAVEL OUTSIDE OF THE [place] IN LAST 30 DAYS: No - Related Data Allergies/Adverse Reactions: adhesive Allergy (Verified 11/08/18 06:56) Hives bacitracin [From Neosporin] Allergy (Verified 11/08/18 06:56) bacitracin zinc [From Neosporin] Allergy (Verified 11/08/18 06:56) gramicidin D [From Neosporin] Allergy (Verified 11/08/18 06:56) latex [Latex] Allergy (Verified 11/08/18 06:56) neomycin sulfate [From Neosporin] Allergy (Verified 11/08/18 06:56) Penicillins Allergy (Verified 11/08/18 06:56) polymyxin B [From Neosporin] Allergy (Verified 11/08/18 06:56) polymyxin B sulfate [From Neosporin] Allergy (Verified 11/08/18 06:56) Home Medications: b/p. depression. statin Past Medical History - Social History Chew tobacco use (# tins/day): No Drug Abuse: None - Past Medical History Cardiac Medical History: Reports: Hx Hypercholesterolemia, Hx Hypertension Denies: Hx Coronary Artery Disease, Hx Heart Attack Pulmonary Medical History: Denies: Hx Asthma, Hx Bronchitis, Hx COPD, Hx Pneumonia Neurological Medical History: Denies: Hx Cerebrovascular Accident, Hx Seizures Renal/ Medical History: Denies: Hx Peritoneal Dialysis GI Medical History: Reports: Hx Gastroesophageal Reflux Disease Musculoskeltal Medical History: Denies Hx Arthritis Psychiatric Medical History: Reports: Hx Depression Past Surgical History: Reports: Hx Cardiac Surgery - ANGIOPLASTY, Hx Orthopedic Surgery - Right hip replacement - Immunizations Hx Diphtheria, Pertussis, Tetanus Vaccination: Yes Physical Exam - Vital signs Vitals: Pulse Resp BP Pulse Ox 84 20 178/93 H 99 01/11/19 15:20 01/11/19 15:20 01/11/19 15:20 01/11/19 15:20 Course - Vital Signs Vital signs: Temp Pulse Resp BP Pulse Ox 84 20 178/93 H 99 01/11/19 15:20 01/11/19 15:20 01/11/19 15:20 01/11/19 15:20 Doctor's Discharge - Discharge Referrals: MARY DUARTE PA [Primary Care Provider] - Follow up as needed
[2019-01-11 15:58] LABS: ABSOLUTE BASOPHILS # (AUTO) 0.1 10^3/uL (0.0-0.2); ABSOLUTE LYMPHOCYTES (AUTO) 1.4 10^3/uL (0.5-4.7); ABSOLUTE MONOCYTES (AUTO) 0.7 10^3/uL (0.1-1.4); ABSOLUTE NEUT (AUTO) 15.9 10^3/uL (1.7-8.2); BASOPHILS % (AUTO) 0.3 % (0-2); EOSINOPHILS % (AUTO) 0.1 % (0-6); HEMATOCRIT 51.3 % (37.9-51.0); HEMOGLOBIN 17.6 g/dL (13.5-17.0); LYMPHOCYTES % (AUTO) 7.5 % (13-45); MEAN CORPUSCULAR HEMOGLOBIN 29.9 pg (27.0-33.4); MEAN CORPUSCULAR HGB CONC 34.3 g/dL (32.0-36.0); MEAN CORPUSCULAR VOLUME 87 fl (80-97); MONOCYTES % (AUTO) 3.7 % (3-13); PLATELET COUNT 399 10^3/uL (150-450); RED BLOOD COUNT 5.88 10^6/uL (4.35-5.55); RED CELL DISTRIBUTION WIDTH 13.6 % (11.5-14.0); SEGMENTED NEUTROPHILS % (AUTO) 88.4 % (42-78); TOTAL CELLS COUNTED % (AUTO) 100 %; WHITE BLOOD COUNT 17.9 10^3/uL (4.0-10.5)
[2019-01-11 16:09] LABS: APPEARANCE,URINE CLEAR; BILIRUBIN,URINE NEGATIVE (NEGATIVE); COLOR,URINE YELLOW; GLUCOSE, URINE NEGATIVE (NEGATIVE); KETONES,URINE TRACE mg/dL (NEGATIVE); LEUKOCYTE ESTERASE,URINE NEGATIVE (NEGATIVE); NITRITE,URINE NEGATIVE (NEGATIVE); PROTEIN,URINE 30 mg/dL (NEGATIVE); URINE SPECIFIC GRAVITY 1.019; UROBILINOGEN,URINE NEGATIVE mg/dL (<2.0)
[2019-01-11 16:24] LABS: ALBUMIN 5.2 g/dL (3.5-5.0); ALKALINE PHOSPHATASE 53 U/L (38-126); ANION GAP 11 (5-19); ASPARTATE AMINO TRANSFERASE 29 U/L (17-59); BILIRUBIN,DIRECT 0.1 mg/dL (0.0-0.4); BILIRUBIN,TOTAL 0.6 mg/dL (0.2-1.3); BLOOD UREA NITROGEN 18 mg/dL (7-20); CALCIUM 9.9 mg/dL (8.4-10.2); CARBON DIOXIDE 30 mmol/L (22-30); CHLORIDE 100 mmol/L (98-107); GLUCOSE 135 mg/dL (75-110); POTASSIUM 4.6 mmol/L (3.6-5.0); TOTAL PROTEIN 8.5 g/dL (6.3-8.2)
--- NOTE | 2019-01-11 17:47 | ER Document Report ---
ED General - General Chief Complaint: Nausea/Vomiting/Diarrhea Stated Complaint: NAUSEA Time Seen by Provider: 01/11/19 15:25 Primary Care Provider: MARY DUARTE PA [Primary Care Provider] - Follow up as needed Mode of Arrival: Ambulatory TRAVEL OUTSIDE OF THE [place] IN LAST 30 DAYS: No - Related Data Allergies/Adverse Reactions: adhesive Allergy (Verified 11/08/18 06:56) Hives bacitracin [From Neosporin] Allergy (Verified 11/08/18 06:56) bacitracin zinc [From Neosporin] Allergy (Verified 11/08/18 06:56) gramicidin D [From Neosporin] Allergy (Verified 11/08/18 06:56) latex [Latex] Allergy (Verified 11/08/18 06:56) neomycin sulfate [From Neosporin] Allergy (Verified 11/08/18 06:56) Penicillins Allergy (Verified 11/08/18 06:56) polymyxin B [From Neosporin] Allergy (Verified 11/08/18 06:56) polymyxin B sulfate [From Neosporin] Allergy (Verified 11/08/18 06:56) Home Medications: b/p. depression. statin Past Medical History - General Information source: Patient - Social History Smoking Status: Never Smoker Chew tobacco use (# tins/day): No Drug Abuse: None Family History: Reviewed & Not Pertinent, Hyperlipidemia Patient has suicidal ideation: No Patient has homicidal ideation: No - Past Medical History Cardiac Medical History: Reports: Hx Hypercholesterolemia, Hx Hypertension Denies: Hx Coronary Artery Disease, Hx Heart Attack Pulmonary Medical History: Denies: Hx Asthma, Hx Bronchitis, Hx COPD, Hx Pneumonia Neurological Medical History: Denies: Hx Cerebrovascular Accident, Hx Seizures Renal/ Medical History: Denies: Hx Peritoneal Dialysis GI Medical History: Reports: Hx Gastroesophageal Reflux Disease Musculoskeletal Medical History: Denies Hx Arthritis Psychiatric Medical History: Reports: Hx Depression Past Surgical History: Reports: Hx Cardiac Surgery - ANGIOPLASTY, Hx Orthopedic Surgery - Right hip replacement - Immunizations Hx Diphtheria, Pertussis, Tetanus Vaccination: Yes Physical Exam - Vital signs Vitals: Pulse Resp BP Pulse Ox 84 20 178/93 H 99 01/11/19 15:20 01/11/19 15:20 01/11/19 15:20 01/11/19 15:20 - Notes Notes: Patient presents emergency department complaining of abdominal pain that started this morning. He felt bloated and started having cramps down the midline of his abdomen with nausea multiple episodes of vomiting and episodes of watery diarrhea. He says he-colored like it so he cannot tell if there is any blood in it. Is not been on antibiotics. The been no sick contacts. Family pet who is not sick. No fevers but he said he felt hot and cold. Had no urinary symptoms chest pain or shortness of breath His medical history significant for hypertension elevated cholesterol and atrial fibrillation which is been stable not on anticoagulants for this Social history does not smoke or drink at all Meds he was on oxycodone in the beginning of the month for a shoulder injury only took for 2 or 3 days Review of systems pertinent positives and negatives in HPI otherwise all the systems were reviewed and acutely negative PHYSICIAN EXAM -vital signs are noted triage note and note from triage reviewed GENERAL: Well-appearing, well-nourished and in __no acute distress____ HEAD: Atraumatic, normocephalic. EYES: Pupils equal round and reactive to light, extraocular movements intact, sclera anicteric, conjunctiva are normal. ENT: nares patent, oropharynx clear without exudates. Dry mucous membranes. NECK: supple without lymphadenopathy LUNGS: Breath sounds clear to auscultation bilaterally and equal. No wheezes rales or rhonchi. HEART: Regular rate and rhythm without murmurs ABDOMEN: Soft, nontender, normoactive bowel sounds. My exam he is nontender but he says that it does hurt diffusely is no peritoneal signs EXTREMITIES: No deformity, no edema. NEUROLOGICAL: No focal neurological deficits. Moves all extremities spontaneously and on command. PSYCH: Normal mood, normal affect. SKIN: Warm, Dry, normal turgor, no rashes or lesions noted. BACK-nontender in the midline Course - Re-evaluation Re-evalutation: 01/11/19 20:02 ED patient is remained stable he has had serial exams abdomen continues to be nontender. Was given IV fluids and has been up to the bathroom to urinate. One additional episode of diarrhea and was given Imodium. Is been tolerating liquids well Medical decision-making patient presents with abdominal pain vomiting and diarrhea. Count was elevated which probably stress related he is afebrile. He is negative had no abdominal tenderness on my exam. Affect is probably more of a viral syndrome. He looks well and nontoxic and be discharged home with a prescription for Zofran and Bentyl and recommend he take Imodium since he had both vomiting and diarrhea do not feel that he would benefit from antibiotics Dictation was done using voice recognition software. There may be some grammatical errors which are unintentional 01/11/19 20:03 - Vital Signs Vital signs: Temp Pulse Resp BP Pulse Ox 84 20 178/93 H 99 01/11/19 15:20 01/11/19 15:20 01/11/19 15:20 01/11/19 15:20 - Laboratory Result Diagrams: 01/11/19 15:42 01/11/19 15:42 Laboratory results interpreted by me: 01/11/19 01/11/19 01/11/19 15:42 15:42 15:42 WBC 17.9 H RBC 5.88 H Hgb 17.6 H Hct 51.3 H Lymph % (Auto) 7.5 L Absolute Neuts (auto) 15.9 H Seg Neutrophils % 88.4 H Glucose 135 H Total Protein 8.5 H Albumin 5.2 H Urine Protein 30 H Urine Ketones TRACE H Urine Ascorbic Acid 40 H Discharge - Discharge Clinical Impression: Vomiting and diarrhea Abdominal pain Qualifiers: Abdominal location: generalized Qualified Code(s): R10.84 - Generalized abdo jose pain Disposition: HOME, SELF-CARE Instructions: Abdominal Pain ([facility]), Antinausea Medication ([facility]), Diarrhea, Nonspecific ([facility]), Antispasmodics ([facility]) Additional Instructions: Please review the discharge instructions, they will tell you about your disease/injury and what you need to return to the ED for Return to the ED if you feel worse or can follow-up with your family doctor stay on clear liquids for 8 hours and go to a bland diet avoiding fatty greasy foods for 2-3 days You can take Imodium for the diarrhea-is [id number] Up with your family doctor in 2 to 3 days if not better Return for fever or persistent vomiting Prescriptions: Ondansetron [Zofran Odt 4 mg Tablet] 1 - 2 tab PO Q4HP PRN #10 tab.rapdis PRN Reason: Dicyclomine HCl [Bentyl 20 mg Tablet] 20 mg PO QID PRN #15 tablet PRN Reason: Referrals: MARY DUARTE PA [Primary Care Provider] - Follow up as needed
[2019-01-11] MEDS ORDERED: DEXTROSE 5%-1/2 NORMAL SALINE 1,000 ML IV PRN (17:48)
[2019-01-11] MEDS ORDERED: NORMAL SALINE 1000 ML 1,000 ML IV ONE (17:48)
--- NOTE | 2019-01-11 19:46 | RADIOLOGY REPORT (SQ) ---
EXAM DESCRIPTION: CT ABD/PELVIS WITH IV ONLY COMPLETED DATE/TIME: 01/11/2019 6:41 pm REASON FOR STUDY: Abdominal pain COMPARISON: None. TECHNIQUE: CT scan of the abdomen and pelvis performed using helical scanning technique with dynamic intravenous contrast injection. No oral contrast. Images reviewed with lung, soft tissue, and bone w indows. Reconstructed coronal and sagittal MPR images reviewed. Delayed images for evaluation of the urinary system also acquired. All images stored on PACS. All CT scanners at this facility use dose modulation, iterative reconstruction, and/or weight based d osing when appropriate to reduce radiation dose to as low as reasonably achievable (ALARA). [facility]: Dose Right [facility]: CareDose [facility]: Dose Right [facility]: Teradose 4D [facility]: @Pay CONTRAST TYPE AND DOSE: contrast/concentration: Isovue 350.00 mg/ml; Total Contrast Delivered: 100.0 ml; Total Saline Delivered: 26.6 ml RENAL FUNCTION: GFR > 60. RADIATION DOSE: CT Rad equipment meets quality standard of care and radiation dose reduction techniq ues were employed. CTDIvol: 19.9 - 20.8 mGy. DLP: 2428 mGy-cm.. LIMITATIONS: None. FINDINGS: LOWER CHEST: No significant findings. LIVER: Normal size. Small left lobe cyst. No enhancing masses. No dilated ducts. SPLEEN: Normal size. No focal lesions. PANCREAS: No masses identified. No significant calcifications. No adjacent inflammation or peripancre atic fluid collections. Pancreatic duct not dilated. GALLBLADDER: No calcified stones. No inflammatory changes to suggest cholecystitis. ADRENAL GLANDS: No significant masses. RIGHT KIDNEY AND URETER: No cysts identified. No solid masses identified. Tiny calcified stones. No hydronephrosis or hydroureter. LEFT KIDNEY AND URETER: Tiny cysts identified. No solid masses identified. No calcified stones. No hy dronephrosis or hydroureter. AORTA AND VESSELS: No aneurysm. No dissection. Renal arteries, SMA, celiac without significant stenos is. RETROPERITONEUM: No bulky retroperitoneal adenopathy. BOWEL AND PERITONEAL CAVITY: No dilated bowel. Minimal small bowel inflammatory changes and mesenter ic free fluid. Sigmoid diverticulosis. APPENDIX: Normal. PELVIS: Trace free fluid. Unremarkable bladder. ABDOMINAL WALL: No masses. No hernias. BONES: No acute findings. OTHER: No other significant finding. IMPRESSION: No dilated bowel. Minimal small bowel inflammatory changes and mesenteric free fluid, p ossible enteritis. TECHNICAL DOCUMENTATION: JOB ID: [id number] [id number] Quality ID # [id number]: Final reports with documentation of one or more dose reduction techniques (e.g., Au tomated exposure control, adjustment of the mA and/or kV according to patient size, use of iterative reconstruction technique) 2010 [employer] All Rights Reserved Reading location - IP/workstation name: [email or web address]
[2019-01-11] MEDS ORDERED: LOPERAMIDE HCL 2 MG CAPSULE PO ONE (20:00)
[2019-01-11] MEDS ORDERED: ONDANSETRON ODT 4 MG TAB (6 TAB/ER DISP) PO PRN (20:01)
[2019-01-11 20:06] LABS: C DIFFICILE GDH NEGATIVE (NEGATIVE)
[2019-01-11 20:26] VITALS: BP 145/67
== END 2019-01-11 20:34 | disposition home or self-care (01) ==
LOC: ER 15:15
DX: R11.2 Nausea with vomiting, unspecified (principal); R19.7 Diarrhea, unspecified; R10.84 Generalized abdominal pain; E78.00 Pure hypercholesterolemia, unspecified; I10 Essential (primary) hypertension; Z88.3 Allergy status to other anti-infective agents; Z91.040 Latex allergy status; Z88.0 Allergy status to penicillin
CPT/HCPCS: 99284; 96360; 36415; 83690; 85025; 80053; 81001; 87324; 87449; 74177; S0119; J7030

== ENCOUNTER 2019-01-14 04:16 | Emergency (ER) | payer OTHER, MEDICARE ==
[2019-01-14] MEDS ORDERED: HYDROMORPHONE HCL INJ/PF 2 MG/ML AMPULE IV ONE ×2 (05:32→10:59)
[2019-01-14] MEDS ORDERED: ONDANSETRON HCL INJ/PF 4 MG/2 ML SDV IV ONE ×2 (05:32→10:59)
[2019-01-14 06:02] LABS: ALBUMIN 4.4 g/dL (3.5-5.0); ALKALINE PHOSPHATASE 37 U/L (38-126); ANION GAP 10 (5-19); ASPARTATE AMINO TRANSFERASE 34 U/L (17-59); BILIRUBIN,DIRECT 0.1 mg/dL (0.0-0.4); BILIRUBIN,TOTAL 0.4 mg/dL (0.2-1.3); BLOOD UREA NITROGEN 16 mg/dL (7-20); CALCIUM 9.8 mg/dL (8.4-10.2); CARBON DIOXIDE 30 mmol/L (22-30); CHLORIDE 105 mmol/L (98-107); GLUCOSE 136 mg/dL (75-110); POTASSIUM 4.3 mmol/L (3.6-5.0); TOTAL PROTEIN 7.1 g/dL (6.3-8.2)
[2019-01-14 06:21] LABS: ABSOLUTE BASOPHILS # (AUTO) 0.1 10^3/uL (0.0-0.2); ABSOLUTE MONOCYTES (AUTO) 0.4 10^3/uL (0.1-1.4); ABSOLUTE NEUT (AUTO) 10.3 10^3/uL (1.7-8.2); BASOPHILS % (AUTO) 0.4 % (0-2); EOSINOPHILS % (AUTO) 0.3 % (0-6); HEMATOCRIT 43.6 % (37.9-51.0); LYMPHOCYTES % (AUTO) 15.5 % (13-45); MEAN CORPUSCULAR HEMOGLOBIN 29.9 pg (27.0-33.4); MEAN CORPUSCULAR HGB CONC 34.6 g/dL (32.0-36.0); MEAN CORPUSCULAR VOLUME 87 fl (80-97); MONOCYTES % (AUTO) 2.9 % (3-13); PLATELET COUNT 312 10^3/uL (150-450); RED BLOOD COUNT 5.03 10^6/uL (4.35-5.55); RED CELL DISTRIBUTION WIDTH 13.3 % (11.5-14.0); SEGMENTED NEUTROPHILS % (AUTO) 80.9 % (42-78); TOTAL CELLS COUNTED % (AUTO) 100 %; WHITE BLOOD COUNT 12.7 10^3/uL (4.0-10.5)
[2019-01-14 06:31] LABS: HEMOGLOBIN 15.1 g/dL (13.5-17.0)
--- NOTE | 2019-01-14 07:06 | RADIOLOGY REPORT (SQ) ---
CT abdomen and pelvis with contrast on 01/14/2019 at 6:33 AM CLINICAL INDICATION: Generalized abdominal pain TECHNIQUE: Multiple axial images are obtained throughout the abdomen and pelvis following the administration of IV contrast, 99 mL of Omnipaque 350 contrast was administered intravenously without complication. This exam was performed according to our departmental dose-optimization program, which includes automated exposure control, adjustment of the mA and/or kV according to patient size and/or use of iterative reconstruction technique. Total DLP is 2294.81 mGy*cm. COMPARISON: 01/11/2019 FINDINGS: Abdomen: There is minimal bibasilar atelectasis. Small left hepatic cyst is noted. There is small left renal cyst. Solid abdominal organs are otherwise unremarkable. There is no abdominal adenopathy. Small amount of free fluid is noted adjacent to the liver. There is no free air. There are dilated loops of mid and distal small bowel to the level of a stool in small bowel appearance in the distal ileum proximal to an area of wall thickening involving the distal and terminal ileum. The findings are consistent with small bowel obstruction that is likely a partial obstruction and appears to be secondary to a distal enteritis suggestive of Crohn's disease. There is small amount of fluid and stranding in the distal ileal small bowel mesentery. Pelvis: Small amount of free fluid is noted in the pelvis. There is diverticulosis. There is no pelvic adenopathy. The pelvic portion of the GI tract including the appendix is otherwise unremarkable. Degenerative changes are noted in the spine. The patient is status post right total hip arthroplasty. IMPRESSION: 1. Findings consistent with small bowel obstruction that appears to be secondary to a distal ileal enteritis most suggestive of Crohn's disease causing an obstruction. Recommend appropriate clinical workup. 2. Diverticulosis.
[2019-01-14] MEDS ORDERED: NORMAL SALINE 1000 ML 1,000 ML IV ONE (07:25)
--- NOTE | 2019-01-14 07:28 | ER Document Report ---
ED GI/ <JERMAINE HERNANDEZDHI R - Last Filed: 01/14/19 14:37> - General TRAVEL OUTSIDE OF THE [place] IN LAST 30 DAYS: No - Related Data Home Medications: zyrtec, dilitizam, chol med,. albuterol, buspar <BOO PALACIOS - Last Filed: 01/14/19 20:55> - General Chief Complaint: Abdominal Pain Stated Complaint: ABDOMINAL PAIN Time Seen by Provider: 01/14/19 04:44 [facility] [[facility]] - Follow up as needed Notes: Patient is a 63-year-old male presents to the emergency department for continued abdominal pain. States on Wednesday he was seen at this facility for gener alized abdominal pain, vomiting and diarrhea. States he did take 1 dose of Imodium as instructed by provider in the emergency department. States he was sent home with Bentyl and Zofran. States he did not get the Bentyl or Zofran filled. States since being seen in the emergency department on Wednesday he has not been able to have a bowel movement. Patient voices that abdominal pain has increased which is why he represents to the emergency room. Patient's denying any vomiting but is complaining of generalized nausea. Past medical history: Atrial fibrillation, hyperlipidemia, hypertension. Medications: Atorvastatin, dwtbay-rypp-doh, Cardizem, aspirin (BOO PALACIOS) - Related Data Allergies/Adverse Reactions: adhesive Allergy (Verified 11/08/18 06:56) Hives bacitracin [From Neosporin] Allergy (Verified 11/08/18 06:56) bacitracin zinc [From Neosporin] Allergy (Verified 11/08/18 06:56) gramicidin D [From Neosporin] Allergy (Verified 11/08/18 06:56) latex [Latex] Allergy (Verified 11/08/18 06:56) neomycin sulfate [From Neosporin] Allergy (Verified 11/08/18 06:56) Penicillins Allergy (Verified 11/08/18 06:56) polymyxin B [From Neosporin] Allergy (Verified 11/08/18 06:56) polymyxin B sulfate [From Neosporin] Allergy (Verified 11/08/18 06:56) Past Medical History - General Information source: Patient, Relative - Social History Smoking Status: Never Smoker Frequency of alcohol use: Rare Drug Abuse: None Family History: Reviewed & Not Pertinent, Hyperlipidemia Patient has suicidal ideation: No Patient has homicidal ideation: No - Past Medical History Cardiac Medical History: Reports: Hx Hypercholesterolemia, Hx Hypertension Denies: Hx Coronary Artery Disease, Hx Heart Attack Pulmonary Medical History: Denies: Hx Asthma, Hx Bronchitis, Hx COPD, Hx Pneumonia Neurological Medical History: Denies: Hx Cerebrovascular Accident, Hx Seizures Renal/ Medical History: Denies: Hx Peritoneal Dialysis GI Medical History: Reports: Hx Gastroesophageal Reflux Disease Musculoskeletal Medical History: Denies Hx Arthritis Psychiatric Medical History: Reports: Hx Depression Past Surgical History: Reports: Hx Cardiac Surgery - ANGIOPLASTY, Hx Orthopedic Surgery - Right hip replacement - Immunizations Hx Diphtheria, Pertussis, Tetanus Vaccination: Yes <BOO PALACIOS - Last Filed: 01/14/19 20:55> Review of Systems - Review of Systems Constitutional: denies: Fever EENT: No symptoms reported Cardiovascular: No symptoms reported Respiratory: No symptoms reported Gastrointestinal: See HPI Genitourinary: No symptoms reported Male Genitourinary: No symptoms reported Musculoskeletal: No symptoms reported Skin: No symptoms reported Hematologic/Lymphatic: No symptoms reported Neurological/Psychological: No symptoms reported <BOO PALACIOS - Last Filed: 01/14/19 20:55> Physical Exam <BOO PALACIOS - Last Filed: 01/14/19 20:55> - Vital signs Vitals: Temp Pulse Resp BP Pulse Ox 97.8 F 65 20 173/88 H 98 01/14/19 04:20 01/14/19 04:20 01/14/19 04:20 01/14/19 04:20 01/14/19 04:20 - Notes Notes: GENERAL: Alert, interacts well. HEAD: Normocephalic, atraumatic. EYES: Pupils equal, round, and reactive to light. Extraocular movements intact. ENT: Oral mucosa moist, tongue midline. NECK: Full range of motion. Supple. Trachea midline. LUNGS: Clear to auscultation bilaterally, no wheezes, rales, or rhonchi. No respiratory distress. HEART: Regular rate and rhythm. No murmur ABDOMEN: Soft, generalized pain noted all 4 quadrants. Non-distended. Bowel sounds present in all 4 quadrants. EXTREMITIES: Moves all 4 extremities spontaneously. No edema, normal radial and dorsalis pedis pulses bilaterally. No cyanosis. BACK: no cervical, thoracic, lumbar midline tenderness. No saddle anesthesia, normal distal neurovascular exam. NEUROLOGICAL: Alert and oriented x3. Normal speech. cranial nerves II through XII grossly intact PSYCH: Normal affect, normal mood. SKIN: Warm, dry, normal turgor. No rashes or lesions noted. (OBO PALACIOS) Course - Laboratory Result Diagrams: 01/14/19 05:55 01/14/19 05:27 <BRANDON HERNANDEZ - Last Filed: 01/14/19 14:37> - Laboratory Result Diagrams: 01/14/19 05:55 01/14/19 05:27 <BOO PALACIOS - Last Filed: 01/14/19 20:55> - Re-evaluation Re-evalutation: 01/14/19 11:35 CT with oral contrast finished. Results showing inflammatory bowel disease with ileal stricture. Discussed this with Dr. Philip who states he will evaluate CT. 01/14/19 12:[address] and states pt needs outpatient follow up with GI due to possible Crohns. Will PO challenge. 01/14/19 14:37 Reassessed pt. Pain relieved. PO challenge passed. Explained results of CT and surgical recommendations to pt and pt's . Pt and pt's agree with plan of care. Return precautions discussed/given. Pt has GI doctor at [facility] that he will follow up with. All questions/concerns addressed prior to discharge. (BRANDON HERNANDEZ) Laboratory 01/14/19 01/14/19 01/14/19 05:27 05:27 05:55 WBC Cancelled RBC Cancelled Hgb Cancelled Hct Cancelled MCV Cancelled MCH Cancelled MCHC Cancelled RDW Cancelled Plt Count Cancelled Lymph % (Auto) Cancelled [place] % (Auto) Cancelled Eos % (Auto) Cancelled Baso % (Auto) Cancelled Absolute Neuts (auto) Cancelled Absolute Lymphs (auto) Cancelled Absolute Monos (auto) Cancelled Absolute Eos (auto) Cancelled Absolute Basos (auto) Cancelled Seg Neutrophils % Cancelled Platelet Estimate Cancelled Sodium 145.4 H Potassium 4.3 Chloride 105 Carbon Dioxide 30 Anion Gap 10 BUN 16 Creatinine 1.17 Est GFR ( Amer) > 60 Est GFR (MDRD) Non-Af > 60 Glucose 136 H Lactic Acid 1.1 Calcium 9.8 Total Bilirubin 0.4 Direct Bilirubin 0.1 Neonat Total Bilirubin Not Reportable Neonat Direct Bilirubin Not Reportable Neonat Indirect Bili Not Reportable AST 34 ALT 47 Alkaline Phosphatase 37 L Total Protein 7.1 Albumin 4.4 Lipase 93.1 Slides for Path Review Cancelled 01/14/19 05:55 WBC 12.7 H RBC 5.03 Hgb 15.1 D Hct 43.6 MCV 87 MCH 29.9 MCHC 34.6 RDW 13.3 Plt Count 312 Lymph % (Auto) 15.5 [place] % (Auto) 2.9 L Eos % (Auto) 0.3 Baso % (Auto) 0.4 Absolute Neuts (auto) 10.3 H Absolute Lymphs (auto) 2.0 Absolute Monos (auto) 0.4 Absolute Eos (auto) 0.0 Absolute Basos (auto) 0.1 Seg Neutrophils % 80.9 H Platelet Estimate Sodium Potassium Chloride Carbon Dioxide Anion Gap BUN Creatinine Est GFR ( Amer) Est GFR (MDRD) Non-Af Glucose Lactic Acid Calcium Total Bilirubin Direct Bilirubin Neonat Total Bilirubin Neonat Direct Bilirubin Neonat Indirect Bili AST ALT Alkaline Phosphatase Total Protein Albumin Lipase Slides for Path Review Abdomen/Pelvis CT 01/14/19 04:57 IMPRESSION: 1. Findings consistent with small bowel obstruction that appears to be secondary to a distal ileal enteritis most suggestive of Crohn's disease causing an obstruction. Recommend appropriate clinical workup. 2. Diverticulosis. CT showing SBO. 01/14/19 07:27 I discussed this case with the surgical list Dr. Philip who states he will evaluate the patient at bedside. 01/14/19 07:56 Dr. Philip has evaluated the patient at bedside and is requesting a oral contrasted CT. CT ordered at this time. Patient care and report transferred Dennys Hernandez PA-C for continued care. (BOO PALACIOS) - Vital Signs Vital signs: Temp Pulse Resp BP Pulse Ox 97.8 F 77 20 139/70 H 95 01/14/19 15:24 01/14/19 15:24 01/14/19 15:24 01/14/19 15:24 01/14/19 15:24 - Laboratory Laboratory results interpreted by me: 01/14/19 01/14/19 05:27 05:55 WBC 12.7 H [place] % (Auto) 2.9 L Absolute Neuts (auto) 10.3 H Seg Neutrophils % 80.9 H Sodium 145.4 H Glucose 136 H Alkaline Phosphatase 37 L Discharge <JERMAINE HERNANDEZBREA Sam - Last Filed: 01/14/19 14:37> <BOO PALACIOS - Last Filed: 01/14/19 20:55> - Discharge Clinical Impression: Abdominal pain Qualifiers: Abdominal location: generalized Qualified Code(s): R10.84 - Generalized abdominal pain Condition: Stable Disposition: HOME, SELF-CARE Instructions: Abdominal Pain ([facility]) Additional Instructions: Your CT abdomen/pelvis showed inflammatory bowel disease along distal ileum with possible distal ileum stricture. You have been seen in the Emergency Department (ED) for abdominal pain. Your evaluation did not identify a clear cause of your symptoms but was generally reassuring. Please follow up with your doctor as soon as possible regarding today's emergent visit and the symptoms that are bothering you. Please call your GI doctor to follow up in 3-5 days. Return to the ED if your abdominal pain worsens or fails to improve, you develop bloody vomiting, bloody diarrhea, you are unable to tolerate fluids due to vomiting, fever greater than 101, or other symptoms that concern you. Referrals: [facility] [Primary [facility] Provider] - Follow up as needed
--- NOTE | 2019-01-14 08:04 | PDOC CONSULTATION ---
Consultation Consult Date: 01/14/19 Provider Consulted: SUYAPA PHILIP Consult reason:: Abdominal pain nausea vomiting diarrhea History of Present Illness Admission Date/PCP: [facility] History of Present Illness: SHANNON VAZQUEZ is a 63 year old male Presents emergency department via ground rescue to [facility] for the second time in 3 days complaining of abdominal pain, crampy, nausea, vomiting and diarrhea. Patient was evaluated in the emergency department, had a CT scan of the abdomen and pelvis without oral contrast which showed findings consistent with small bowel obstruction. Surgery was consulted. Upon arrival, Dr. Philip, leasing consultant, encountered the patient having received pain medication, so the HPI was conducted primarily the patient's . According to the , the patient had a colonoscopy earlier this year by Dr. Yin with no significant findings. Patient has a several day history of crampy abdominal pain, right-sided abdominal discomfort, bloating. Last good bowel movement was 3 days ago. He was started on Imodium and has not had a bowel movement since Wednesday. Reviewing the [facility] EMR, patient has been seen in the emergency department for constipation in the past. Patient is kept n.p.o. and on IV fluids currently. He is having less abdominal pain. Past Medical History Past Medical History: Hypertension, coronary artery disease, GERD, obesity, constipation, upper cholesterolemia Cardiac Medical History: Reports: Hyperlipidema, Hypertension Denies: Coronary Artery Disease, Myocardial Infarction Pulmonary Medical History: Denies: Asthma, Bronchitis, Chronic Obstructive Pulmonary Disease (COPD), Pneumonia Neurological Medical History: Denies: Seizures GI Medical History: Reports: Gastroesophageal Reflux Disease Musculoskeltal Medical History: Denies: Arthritis Psychiatric Medical History: Reports: Depression Hematology: Denies: Anemia Past Surgical History Past Surgical History: Left rotator cuff surgery by Dr. Roderick Roman, [facility]; right total hip replacement 5 years ago Past Surgical History: Reports: Orthopedic Surgery - Right hip replacement Social History Information Source: Patient Lives with: Spouse/Significant other Smoking Status: Never Smoker Frequency of Alcohol Use: None Hx Recreational Drug Use: No Drugs: None Hx Prescription Drug Abuse: No Family History Family History: None, Reviewed & Not Pertinent, Hyperlipidemia Parental Family History Reviewed: No Children Family History Reviewed: No Sibling(s) Family History Reviewed.: No Medication/Allergy Home Medications: Atorvastatin Calcium [Lipitor 40 mg Tablet] 20 mg PO QHS 05/10/18 Cetirizine HCl [Zyrtec 10 mg Tablet] 10 mg PO DAILY 05/10/18 Ibuprofen [Motrin 400 mg Tablet] 400 mg PO TID 05/10/18 Amlodipine Besylate [Norvasc 5 mg Tablet] 2.5 mg PO DAILY 09/19/18 Aspirin [Aspirin 325 mg Tablet] 325 mg PO QHS 09/19/18 Diltiazem HCl [Diltiazem 24Hr ER (Cd)] 180 mg PO QHS 09/19/18 Bupropion HCl [Bupropion HCl Sr] 150 mg PO DAILY 10/28/18 Fluticasone Propionate [Flovent Diskus] 50 mcg IH DAILY 10/28/18 Ketorolac Tromethamine [Toradol 10 mg Tablet] 10 mg PO Q8HP PRN #12 tablet 11/08/18 Oxycodone HCl/Acetaminophen [Percocet 5-325 mg Tablet] 1 tab PO Q6 PRN #25 tab 11/08/18 Dicyclomine HCl [Bentyl 20 mg Tablet] 20 mg PO QID PRN #15 tablet 01/11/19 Ondansetron [Zofran Odt 4 mg Tablet] 1 - 2 tab PO Q4HP PRN #10 tab.rapdis 01/11/19 Allergies/Adverse Reactions: adhesive Allergy (Verified 11/08/18 06:56) Hives bacitracin [From Neosporin] Allergy (Verified 11/08/18 06:56) bacitracin zinc [From Neosporin] Allergy (Verified 11/08/18 06:56) gramicidin D [From Neosporin] Allergy (Verified 11/08/18 06:56) latex [Latex] Allergy (Verified 11/08/18 06:56) neomycin sulfate [From Neosporin] Allergy (Verified 11/08/18 06:56) Penicillins Allergy (Verified 11/08/18 06:56) polymyxin B [From Neosporin] Allergy (Verified 11/08/18 06:56) polymyxin B sulfate [From Neosporin] Allergy (Verified 11/08/18 06:56) Review of Systems Constitutional: PRESENT: as per HPI Eyes: PRESENT: other - Patient has some visual abnormalities Ears: ABSENT: hearing changes Cardiovascular: ABSENT: chest pain, dyspnea on exertion, edema, orthropnea, palpitations Gastrointestinal: PRESENT: as per HPI Musculoskeletal: ABSENT: joint swelling Psychiatric: ABSENT: anxiety, depression, homidical ideation, suicidal ideation Hematologic/Lymphatic: ABSENT: easy bleeding, easy bruising Physical Exam Vital Signs: Temp Pulse Resp BP Pulse Ox 97.9 F 67 18 163/76 H 95 01/14/19 07:25 01/14/19 07:25 01/14/19 07:25 01/14/19 07:25 01/14/19 07:25 Intake & Output 01/13/19 01/14/19 01/15/19 06:59 06:59 06:59 Weight 99.79 kg General appearance: PRESENT: other - Patient very sleepy, in fact somnolent Head exam: PRESENT: normocephalic Eye exam: PRESENT: EOMI Ear exam: PRESENT: normal external ear exam Neck exam: PRESENT: full ROM Respiratory exam: PRESENT: clear to auscultation claudette Cardiovascular exam: PRESENT: RRR Pulses: PRESENT: normal carotid pulses, normal radial pulses, normal femoral pulses, normal dorsalis pedis pul GI/Abdominal exam: PRESENT: other - Soft, nontender no peritoneal signs no rigidity; exam reliability may be blunted due to patient receiving pain medication Rectal exam: PRESENT: deferred Extremities exam: PRESENT: other - Scars left shoulder and right hip consistent with previous surgery Musculoskeletal exam: PRESENT: other - Patient at bedrest Neurological exam: PRESENT: other - Patient arouses and follows simple, Psychiatric exam: PRESENT: other - Sedated Skin exam: PRESENT: dry Results Laboratory Results: 01/14/19 05:55 01/14/19 05:27 01/14/19 01/14/19 01/14/19 05:27 05:27 05:55 WBC Cancelled RBC Cancelled Hgb Cancelled Hct Cancelled MCV Cancelled MCH Cancelled MCHC Cancelled RDW Cancelled Plt Count Cancelled Seg Neutrophils % Cancelled Sodium 145.4 H Potassium 4.3 Chloride 105 Carbon Dioxide 30 Anion Gap 10 BUN 16 Creatinine 1.17 Est GFR ( Amer) > 60 Glucose 136 H Lactic Acid 1.1 Calcium 9.8 Total Bilirubin 0.4 AST 34 Alkaline Phosphatase 37 L Total Protein 7.1 Albumin 4.4 Lipase 93.1 01/14/19 05:55 WBC 12.7 H RBC 5.03 Hgb 15.1 D Hct 43.6 MCV 87 MCH 29.9 MCHC 34.6 RDW 13.3 Plt Count 312 Seg Neutrophils % 80.9 H Sodium Potassium Chloride Carbon Dioxide Anion Gap BUN Creatinine Est GFR ( Amer) Glucose Lactic Acid Calcium Total Bilirubin AST Alkaline Phosphatase Total Protein Albumin Lipase Impressions: Abdomen/Pelvis CT 01/14/19 04:57 IMPRESSION: 1. Findings consistent with small bowel obstruction that appears to be secondary to a distal ileal enteritis most suggestive of Crohn's disease causing an obstruction. Recommend appropriate clinical workup. 2. Diverticulosis. Assessment & Plan - Diagnosis (1) Abdominal pain Qualifiers: Abdominal location: generalized Qualified Code(s): R10.84 - Generalized abdominal pain Is this a current diagnosis for this admission?: Yes Plan: Impression: Recurrent abdominal pain, nausea vomiting and irregular bowel movements; clinical examination blunted due to pain medication on board: CT scan abdomen x2 limited due to absence of oral contrast. Leukocytosis diminished over 3-days from 18,00o to 12,000. Very low clinical suspicion for bowel obstruction, acute abdomen or other need for surgical intervention Discussion and recommendations: 1. It is not clear what is affecting this patient acutely. I do not think he has an acute abdomen; no need for surgery at this time. 2. I suggested the patient drink oral contrast, and have CT of abdomen pelvis repeated. We will rule out mechanical small bowel obstruction, and simply clear his right colon of stool by serving as a cathartic. This was explained to the patient and his at bedside. 3. I discussed the above with the physician assistants in the emergency department caring for the patient. Surgery will be advised of the follow-up CT scan results, and render a follow-up opinion. (2) Hyperlipidemia Qualifiers: Hyperlipidemia type: unspecified Qualified Code(s): E78.5 - Hyperlipidemia, unspecified Is this a current diagnosis for this admission?: Yes (3) Hypertension Qualifiers: Hypertension type: essential hypertension Qualified Code(s): I10 - Essential (primary) hypertension Is this a current diagnosis for this admission?: Yes (4) Obesity (BMI 35.0-39.9 without comorbidity) Is this a current diagnosis for this admission?: Yes - Time Time Spent: 30 to 50 Minutes Smoking Cessation Education: over 10 minutes Medications reviewed and adjusted accordingly: Yes Anticipated discharge: Home
--- NOTE | 2019-01-14 11:14 | RADIOLOGY REPORT (SQ) ---
EXAM DESCRIPTION: CT ABD/PELVIS ORAL ONLY COMPLETED DATE/TIME: 01/14/2019 10:40 am REASON FOR STUDY: general pain COMPARISON: CT abdomen and pelvis 01/14/2019, 01/11/2019, 09/09/2013 TECHNIQUE: CT scan of the abdomen and pelvis performed without intravenous or oral contrast. Images reviewed with lung, soft tissue, and bone windows. Reconstructed coronal and sagittal MPR images revi ewed. All images stored on PACS. All CT scanners at this facility use dose modulation, iterative reconstruction, and/or weight based d osing when appropriate to reduce radiation dose to as low as reasonably achievable (ALARA). [facility]: Dose Right [facility]: CareDose [facility]: Dose Right [facility]: Teradose 4D [facility]: [employer] RADIATION DOSE: CT Rad equipment meets quality standard of care and radiation dose reduction techniq ues were employed. CTDIvol: 19.8 mGy. DLP: 1125 mGy-cm.mGy. LIMITATIONS: None. FINDINGS: Today's CT exam was performed without oral contrast. There is oral contrast in borderline distended small bowel down to the distal ileum. The distal 30 cm of small bowel exhibits inflammation in the surrounding mesenteric fat with trace ad jacent free fluid. Spiculated material in the distal ileum is seen up to the distal 5 cm of ileum, w here there is prominent muscularis propria fat and luminal narrowing worrisome for chronic inflammati on from Crohn's disease. These changes are best shown on coronal images 37-45. Compared to 01/15/20 19, there is a stable amount of inflammatory change and fluid along the distal ileum. This is more p rominent than on 01/11/2019 CT exam. Although the appendix is adjacent to the inflamed distal ileum, there is air throughout the lumen of the appendix suggesting against acute appendicitis. Stomach and colon are decompressed. No mesenteric adenopathy. Colonic diverticulosis without CT sig ns of acute diverticulitis LOWER CHEST: No significant findings. No nodules or infiltrates. NON-CONTRASTED LIVER, SPLEEN, ADRENALS: Evaluation limited by lack of IV contrast. No identified sign ificant masses. 8 mm cyst sub- diaphragmatic surface left lobe liver PANCREAS: No masses. No peripancreatic inflammatory changes. GALLBLADDER: No gross gallstones RIGHT KIDNEY AND URETER: No further IV contrast since 01/14/2019. A trace amount of residual IV cont rast is seen in the kidney and collecting system without hydronephrosis. No significant calcificati ons. No hydronephrosis or hydroureter. LEFT KIDNEY AND URETER: No further IV contrast since 01/14/2019. A trace amount of residual IV contr ast is seen in the kidney and collecting system without hydronephrosis. No significant calcificatio ns. No hydronephrosis or hydroureter. AORTA AND RETROPERITONEUM: No aneurysm. No retroperitoneal masses or adenopathy. BOWEL AND PERITONEAL CAVITY: As above APPENDIX: As above PELVIS, BLADDER, AND ABDOMINAL WALL:Trace free pelvic cul-de-sac fluid. Residual IV contrast from pr ior CT in the urinary bladder. Rectum unremarkable. No adenopathy. BONES: Streak artifact from right hip hardware OTHER: No other significant finding. IMPRESSION: Findings worrisome for inflammatory bowel disease along the distal ileum with possible d istal ileum stricture. COMMENT: Quality ID # [id number]: Final reports with documentation of one or more dose reduction techniques (e.g., Automated exposure control, adjustment of the mA and/or kV according to patient size, use of iterative reconstruction technique) TECHNICAL DOCUMENTATION: JOB ID: [id number] [employer]- All Rights Reserved Reading location - IP/workstation name: [email or web address]
[2019-01-14] MEDS ORDERED: ONDANSETRON ODT 4 MG TAB (6 TAB/ER DISP) PO PRN (14:41)
[2019-01-14] MEDS ORDERED: HYDROCODONE/ACETAMINOPHEN 5-325 MG (6 TAB/ER DISP) PO PRN (14:41)
[2019-01-14 15:33] VITALS: BP 139/70
== END 2019-01-14 15:33 | disposition home or self-care (01) ==
LOC: ER 04:16
DX: R10.84 Generalized abdominal pain (principal); E78.00 Pure hypercholesterolemia, unspecified; I10 Essential (primary) hypertension; Z88.3 Allergy status to other anti-infective agents; Z96.641 Presence of right artificial hip joint
CPT/HCPCS: 96376; 99284; 96361; 96374; 96375; 36415; 83605; 83690; 85025; 80053; 74176; 74177; J1170; J2405; J7030

== ENCOUNTER → 2019-09-05 | Outpatient (CLI) | payer OTHER ==
[2019-09-05 10:09] LABS: ABSOLUTE EOSINOPHILS # (AUTO) 0.2 10^3/uL (0.0-0.6); ABSOLUTE LYMPHOCYTES (AUTO) 3.3 10^3/uL (0.5-4.7); ABSOLUTE MONOCYTES (AUTO) 0.5 10^3/uL (0.1-1.4); ABSOLUTE NEUT (AUTO) 4.5 10^3/uL (1.7-8.2); BASOPHILS % (AUTO) 0.5 % (0-2); EOSINOPHILS % (AUTO) 2.5 % (0-6); HEMATOCRIT 43.5 % (37.9-51.0); HEMOGLOBIN 15.1 g/dL (13.5-17.0); LYMPHOCYTES % (AUTO) 38.8 % (13-45); MEAN CORPUSCULAR HGB CONC 34.7 g/dL (32.0-36.0); MEAN CORPUSCULAR VOLUME 86 fl (80-97); MONOCYTES % (AUTO) 5.7 % (3-13); PLATELET COUNT 302 10^3/uL (150-450); RED BLOOD COUNT 5.04 10^6/uL (4.35-5.55); RED CELL DISTRIBUTION WIDTH 13.3 % (11.5-14.0); SEGMENTED NEUTROPHILS % (AUTO) 52.5 % (42-78); TOTAL CELLS COUNTED % (AUTO) 100 %; WHITE BLOOD COUNT 8.5 10^3/uL (4.0-10.5)
[2019-09-05 10:32] LABS: ANION GAP 9 (5-19); BLOOD UREA NITROGEN 21 mg/dL (7-20); CARBON DIOXIDE 27 mmol/L (22-30); CHLORIDE 103 mmol/L (98-107); GLUCOSE 122 mg/dL (75-110); POTASSIUM 3.9 mmol/L (3.6-5.0)
--- NOTE | 2019-09-05 12:11 | EKG REPORT ---
SEVERITY:- NORMAL ECG - SINUS RHYTHM : Confirmed by: Modesto Agarwal MD 05-Sep-2019 12:10:35
--- NOTE | 2019-09-05 12:59 | RADIOLOGY REPORT (SQ) ---
EXAM DESCRIPTION: CHEST PA/LATERAL IMAGES COMPLETED DATE/TIME: 09/05/2019 9:52 am REASON FOR STUDY: PRE-OP COMPARISON: 09/20/2018 EXAM PARAMETERS: NUMBER OF VIEWS: two views TECHNIQUE: Digital Frontal and Lateral radiographic views of the chest acquired. RADIATION DOSE: NA LIMITATIONS: none FINDINGS: LUNGS AND PLEURA: No opacities, masses or pneumothorax. No pleural effusion. MEDIASTINUM AND HILAR STRUCTURES: No masses or contour abnormalities. HEART AND VASCULAR STRUCTURES: Heart normal size. No evidence for failure. BONES: No acute findings. HARDWARE: None in the chest. OTHER: No other significant finding. IMPRESSION: NO SIGNIFICANT RADIOGRAPHIC FINDING IN THE CHEST. TECHNICAL DOCUMENTATION: JOB ID: [id number] 2010 [employer]- All Rights Reserved Reading location - IP/workstation name: [email or web address]
== END ==
LOC: OD 09:24
PROVIDERS: ATTEND Orthopaedic Surgery
DX: Z01.811 Encounter for preprocedural respiratory examination (principal); Z01.810 Encounter for preprocedural cardiovascular examination; Z01.812 Encounter for preprocedural laboratory examination
CPT/HCPCS: 36415; 71046; 80048; 85025; 93005; 93010